=== PATIENT | female | born 1960 | race Caucasian/White ===

== ENCOUNTER 2016-05-22 12:56 | Emergency (ER) | payer BC ==
[~2016-05-22] VITALS: Ht 172.7 cm; Wt 79.4 kg
[~2016-05-22 12:56] MED LIST: ALPR2TAB2 PO; ASPI-587 PO; CRS350T PO; HYDR-2890 PO; HYDR-757 PO; HYDR25CA5 PO; NITR-65 PO; OXYC10TA55 PO; PARO30TA74 PO
--- OUTSIDE RECORDS SUMMARY | 2016-05-22 13:00 | XMS REPORT | Continuity of Care Document ---
Author Author [facility] Organization [facility] Address Unknown Phone Unavailable Care Team Providers Care Client Support Analyst Name Role Phone NO, LOCAL PHYSICIAN PCP Unavailable Insurance Providers Payer Name Policy Number Subscriber Name Relationship [facility] [id number] Juhi Roe 01 Advance Directives Directive Response Recorded Date/Time Advance Directives No 02/23/16 10:09am Organ Donor Yes 02/23/16 10:09am Resuscitation Status Full Code 02/23/16 10:09am Chief Complaint and Reason for Visit Chief Complaint Back Problems Reason for Visit Encounter for medication refill [id number] Problems Active Problems Medical Problem Onset Date Status Acute exacerbation of chronic low back pain Unknown Acute Anxiety Unknown Acute Anxiety Unknown Acute Anxiety Unknown Acute Benzodiazepine dependence Unknown Acute Chest wall pain Unknown Acute Drug-seeking behavior Unknown Acute Encounter for medication refill Unknown Acute Fracture of ribs, two, closed Unknown Acute Lumbar compression fracture Unknown Acute Opiate withdrawal Unknown Acute Urinary tract infection Unknown Acute Medications Current Home Medications Medication Dose Units Route Directions Days/Qty Instructions Start Date Paroxetine Hcl 30 Mg 30 Mg Oral Daily 01/02/14 Alprazolam 2 Mg 10 Mg Oral As Directed 01/02/14 Hydrocodone Bit/Acetaminophen 1 Each 2 Tab Oral Every 4HRS 01/02/14 Oxycodone Hcl 10 Mg 10 Mg Oral Twice A Day 10 12/31/15 Hydrocodone/Acetaminophen 1 Each 1 Each Oral Every 4HRS as needed for Pain 5 02/23/16 Past Home Medications Medication Directions Ordered Status Carisoprodol 350 Mg Tablet, 1 Tab Oral Tid-Qid 01/02/14 Discontinued Aspirin 81 Mg Tablet., 81 Mg Oral Daily 01/02/14 Discontinued Hydroxyzine Pamoate 25 Mg Capsule, 25 Mg Oral Every 6 Hours as needed for Anxiety 01/02/14 Discontinued Nitrofurantoin Monohyd/M-Cryst 100 Mg Capsule, 1 Tab Oral Twice A Day Discontinued Social History Social History Problem Response Recorded Date/Time Alcohol Use Denies Use 04/12/2015 9:49pm Recreational Drug Use Y MARIJUANA 04/12/2015 9:49pm Recent Foreign Travel No 01/02/2014 11:29am Recent Infectious Disease Exposure No 01/02/2014 11:29am Hospitalization with Isolation Denies 02/23/2016 10:09am Smoking Status Current Everyday Smoker 02/23/2016 10:09am Drug of Choice MARIJUANA 02/23/2016 10:09am Recent Hopitalizations No 02/23/2016 10:09am Hospitalization with Isolation Denies 02/23/2016 10:09am Query Response Start Date Stop Date Smoking Status Current Everyday Smoker 12/26/2014 Hospital Discharge Instructions No hospital discharge instructions. Plan of Care Discharge Date 02/23/16 11:26am Disposition 01 HOME, SELF-CARE Condition at Discharge Stable Instructions/Education Provided MANAGING YOUR CHRONIC PAIN Prescriptions See Medication Section Referrals NO,LOCAL PHYSICIAN - Primary Care Physician BARBIE OLIVER MD - Additional Instructions/Education 1. Follow-up with Dr. Oliver or a physician of your choosing for refills of any controlled substances 2. All discharge instructions reviewed with patient and/or family. Voiced understanding. Functional Status No functional status results. Allergies, Adverse Reactions, Alerts Allergen Type Severity Reaction Status Last Updated Penicillins ([id number]) Allergy Unknown Active 01/02/14 Immunizations No immunization records. Vital Signs Acute Vital Signs Vital Response Date/Time Temperature (Fahrenheit) 97.6 degrees F (97.6 - 99.5) 02/23/2016 11:24am Temperature (Calculated Celsius) 36.88183 degrees C (36.4 - 37.5) 02/23/2016 11:24am Pulse Rate (adult) 106 bpm (60 - 90) 02/23/2016 11:24am Respiratory Rate 18 bpm (12 - 24) 02/23/2016 11:24am O2 Sat by Pulse Oximetry 96 % (88 - 100) 02/23/2016 11:24am Blood Pressure 152/56 mm Hg 02/23/2016 11:24am Blood Pressure Mean 88 mm Hg 02/23/2016 10:09am Pain Numeric Pain Scale 10-Worst Possible Pain 02/23/2016 11:24am Height (Feet) 5 feet 02/23/2016 10:09am Height (Inches) 8 inches 02/23/2016 10:09am Height (Calculated Centimeters) 172.270753 cm 02/23/2016 10:09am Weight (Pounds) 175 pounds 02/23/2016 10:09am Weight (Calculated Kilograms) 79.636212 kilograms 02/23/2016 10:09am Capillary Refill Capillary Refill Less Than 3 Seconds 02/23/2016 10:09am Height 5 ft 8 in Weight 175 lb Body Mass Index 26.6 kg/m^2 Results Laboratory Results Test Name Result Units Flags Reference Collection Date/Time Result Date/ Time Comments White Blood Count 10.0 10^3/uL 4.3-11.0 02/05/2016 10:35am 02/05/2016 10:45am Red Blood Count 4.34 10^6/uL L 4.35-5.85 02/05/2016 10:35am 02/05/2016 10 :45am Hemoglobin 13.0 G/DL 11.5-16.0 02/05/2016 10:35am 02/05/2016 10:45am Hematocrit 39 % 35-52 02/05/2016 10:35am 02/05/2016 10:45am Mean Corpuscular Volume 89 FL 80-99 02/05/2016 10:35am 02/05/2016 10: 45am Mean Corpuscular Hemoglobin 30 PG 25-34 02/05/2016 10:35am 02/05/2016 10:45am Mean Corpuscular Hemoglobin Concent 34 G/DL 32-36 02/05/2016 10:35am 10:45am Red Cell Distribution Width 13.5 % 10.0-14.5 02/05/2016 10:35am 2015 10:45am Platelet Count 282 10^3/uL 130-400 02/05/2016 10:35am 02/05/2016 10: 45am Mean Platelet Volume 8.9 FL 7.4-10.4 02/05/2016 10:35am 02/05/2016 10: 45am Sodium Level 135 MMOL/L 135-145 02/05/2016 10:35am 02/05/2016 11:09am Potassium Level 4.4 MMOL/L 3.6-5.0 02/05/2016 10:35am 02/05/2016 11: 09am Chloride Level 101 MMOL/L 98-107 02/05/2016 10:35am 02/05/2016 11:09am Carbon Dioxide Level 27 MMOL/L 21-32 02/05/2016 10:35am 02/05/2016 11: 09am Anion Gap 7 MMOL/L 5-14 02/05/2016 10:35am 02/05/2016 11:09am Blood Urea Nitrogen 8 MG/DL 7-18 02/05/2016 10:35am 02/05/2016 11:09am Creatinine 0.84 MG/DL 0.60-1.30 02/05/2016 10:35am 02/05/2016 11:09am BUN/Creatinine Ratio 02/05/2016 10:35am 02/05/2016 11:09am Estimat Glomerular Filtration Rate > 60 02/05/2016 10:35am 2015 11:09am GFR INTERPRETIVE DATA UNITS FOR ESTIMATED GFR (eGFR): mL/min/1.73 M2 REFERENCE RANGE FOR ESTIMATED GFR (eGFR) eGFR NORMAL eGFR >60 MODERATELY DECREASED eGFR 30-59 SEVERLY DECREASED eGFR 15-29 KIDNEY FAILURE <15 (OR DIALYSIS) Glucose Level 92 MG/DL 70-105 02/05/2016 10:35am 02/05/2016 11:09am Calcium Level 9.2 MG/DL 8.5-10.1 02/05/2016 10:35am 02/05/2016 11:09am Total Bilirubin 0.5 MG/DL 0.1-1.0 02/05/2016 10:35am 02/05/2016 11: 09am Alkaline Phosphatase 86 U/L 40-136 02/05/2016 10:35am 02/05/2016 11: 09am Aspartate Amino Transf (AST/SGOT) 23 U/L 5-34 02/05/2016 10:35am 2015 11:09am Alanine Aminotransferase (ALT/SGPT) 23 U/L 0-55 02/05/2016 10:35am 12/2015 11:09am Total Protein 6.8 G/DL 6.4-8.2 02/05/2016 10:35am 02/05/2016 11:09am Albumin 4.2 G/DL 3.2-4.5 02/05/2016 10:35am 02/05/2016 11:09am Thyroid Stimulating Hormone (TSH) 0.57 UIU/ML 0.35-4.94 02/05/2016 10: 35am 02/05/2016 11:22am Calcium (PTH Intact) 9.0 mg/dL 8.5-10.5 02/05/2016 10:35am 02/06/2016 6 :54am The Interpretation for the PTH Intact and Calcium PTH results can be found online at: www.iSpecimen/interp Enter test number: [id number]. Test performed at [facility], CLIA# [id number] [address] [place] [address] Parathyroid Hormone (Intact) 74 pg/mL H 10-65 02/05/2016 10:35am 2015 7:01am Test performed at [facility], CLIA# [id number] [address] [place] [address] Vitamin D 25-Hydroxy 20 ng/mL L 30-100 02/05/2016 10:35am 02/06/2016 6: 54am Fluorescein dye has been shown to affect the Vitamin D assay and results may be falsely elevated. Patients that have had a procedure using this dye should be deferred 72 hours prior to collection or this assay. Test performed at [facility], CLIA# [id number] [address] [place] [address] Procedures No known history of procedures. Encounters Encounter Location Arrival/Admit Date Discharge/Depart Date Attending Provider Departed Emergency Room [facility] 02/23/16 10:02am 11:26am AYANA BOATENG APRN Registered Clinic [facility] 02/05/16 9:52am WAQAR ELLIS Recent Diagnosis
[2016-05-22 13:12] LABS: BASOPHILS % (AUTO) 0 % (0-10); EOSINOPHILS # (AUTO) 0.2 10^3/uL (0.0-0.3); EOSINOPHILS % (AUTO) 2 % (0-10); LYMPHOCYTES # (AUTO) 3.8 X 10^3 (1.0-4.0); LYMPHOCYTES % (AUTO) 35 % (12-44); MEAN CORPUSCULAR HEMOGLOBIN 31 PG (25-34); MEAN CORPUSCULAR HGB CONC 35 G/DL (32-36); MEAN CORPUSCULAR VOLUME 88 FL (80-99); MEAN PLATELET VOLUME 8.7 FL (7.4-10.4); MONOCYTES # (AUTO) 0.4 X 10^3 (0.0-1.0); MONOCYTES % (AUTO) 3 % (0-12); NEUTROPHILS # (AUTO) 6.4 X 10^3 (1.8-7.8); NEUTROPHILS % (AUTO) 59 % (42-75); PLATELET COUNT 255 10^3/uL (130-400); RED BLOOD COUNT 4.12 10^6/uL (4.35-5.85); RED CELL DISTRIBUTION WIDTH 12.8 % (10.0-14.5); WHITE BLOOD COUNT 10.8 10^3/uL (4.3-11.0)
[2016-05-22] MEDS ORDERED: PROM50TA3 PO (13:13)
[2016-05-22] MEDS ORDERED: GABA-486 (13:13)
[2016-05-22] MEDS ORDERED: GEMF600T3 (13:13)
[2016-05-22] MEDS ORDERED: HYDR-3812 PO (13:13)
[2016-05-22] MEDS ORDERED: ALPR1TAB7 PO (13:13)
[2016-05-22] MEDS ORDERED: PARO40TA3 (13:13)
[2016-05-22 13:31] LABS: ALANINE AMINOTRANSFERASE 31 U/L (0-55); ALCOHOL 11 MG/DL (<10); ANION GAP 11 MMOL/L (5-14); ASPARTATE AMINO TRANSFERASE 27 U/L (5-34); BILIRUBIN,TOTAL 0.1 MG/DL (0.1-1.0); BLOOD UREA NITROGEN 9 MG/DL (7-18); BUN/CREATININE RATIO 10; CALCIUM 9.9 MG/DL (8.5-10.1); CARBON DIOXIDE 21 MMOL/L (21-32); CHLORIDE 106 MMOL/L (98-107); CREATININE SERUM 0.92 MG/DL (0.60-1.30); GFR ESTIMATED > 60; GLUCOSE 90 MG/DL (70-105); POTASSIUM 4.3 MMOL/L (3.6-5.0); SODIUM 138 MMOL/L (135-145); TOTAL PROTEIN 6.5 G/DL (6.4-8.2)
[2016-05-22 13:38] LABS: ACETAMINOPHEN < 10 UG/ML (10-30)
[2016-05-22 13:45] LABS: BILIRUBIN,URINE NEGATIVE (NEGATIVE); KETONES,URINE NEGATIVE (NEGATIVE); LEUKOCYTE ESTERASE ,URINE NEGATIVE (NEGATIVE); NITRITE,URINE NEGATIVE (NEGATIVE); PH,URINE 5 (5-9); PROTEIN,URINE NEGATIVE (NEGATIVE); UROBILINOGEN,URINE NORMAL (NORMAL)
--- NOTE | 2016-05-22 14:28 | ED General ---
General Chief Complaint: Altered Mental Status Stated Complaint: UNRESPONSIVE Nursing Triage Note: PT WAS OUT SHOPPING WITH TODAY AND AROUND 1230 PT REPORTED NOT FEELING WELL AND BECAME DROWSY AND LETHARGIC. PT REPORT PT DID NOT HAVE ANY KNOWN RECENT ILLNESS. PT ABLE TO RESPOND WITH STIMULATION. Nursing Sepsis Screen: No Definite Risk Source of Information: Patient Exam Limitations: No Limitations History of Present Illness Time Seen by Provider: 14:23 Initial Comments The patient is a 55-year-old white female who has been known to have difficulties with the prescription medication abuse. Her reports that they had been out and shopping and return to the [place] about 1230. She then lapsed into a sleeplike state and he has been unable to awaken her since that time. Timing/Duration: 1-3 Hours Allergies and Home Medications Allergies Coded Allergies: Penicillins (Unverified Allergy, Unknown, 01/02/14) Home Medications Alprazolam 2 Mg Tablet 10 MG PO UD (Reported) Alprazolam 1 Mg Tablet #150 1 MG PO TID PRN PRN ANXIETY (Reported) Gabapentin 100 Mg Capsule #90 (Reported) Gemfibrozil 600 Mg Tablet #60 (Reported) Hydrocodone/Acetaminophen 1 Each Tablet #90 1 TAB-CAP PO TID PRN PRN PAIN ( Reported) Paroxetine HCl 40 Mg Tablet #30 (Reported) Paroxetine Hcl 30 Mg Tablet 30 MG PO DAILY (Reported) Promethazine HCl 50 Mg Tablet #60 50 MG PO PRN (Reported) Constitutional: see HPI EENTM: no symptoms reported Respiratory: no symptoms reported Cardiovascular: no symptoms reported Gastrointestinal: no symptoms reported Genitourinary: no symptoms reported Musculoskeletal: no symptoms reported Skin: no symptoms reported Psychiatric/Neurological: No Symptoms Reported Hematologic/Lymphatic: No Symptoms Reported Immunological/Allergic: no symptoms reported Past Phnmpaz-Kvelks-Kzfcoh Hx Patient Social History Alcohol Use: Denies Use Recreational Drug Use: Yes Drug of Choice: MARIJUANA Smoking Status: Former Smoker Former Smoker/When Quit: Dec 26, 2014 Recent Foreign Travel: No Contact w/Someone Who Travel: No Recent Infectious Disease Expo: No Recent Hopitalizations: No Seasonal Allergies Seasonal Allergies: No Surgeries HX Surgeries: Yes (CERVICAL FUSION) Surgeries: Abdominal, Cardiac, Section, Gallbladder, Hysterectomy, Tonsillectomy Respiratory Hx Respiratory Disorders: Yes Respiratory Disorders: Asthma Cardiovascular Hx Cardiac Disorders: No Neurological Hx Neurological Disorders: No 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 Genitourinary Hx Genitourinary Disorders: No Gastrointestinal Hx Gastrointestinal Disorders: Yes Gastrointestinal Disorders: Hiatal Hernia Musculoskeletal Hx Musculoskeletal Disorders: Yes (compression fractures of the lumbar spine) Musculoskeletal Disorders: Osteoporosis, Arthritis, Fibromyalgia, Chronic Back Pain Endocrine Hx Endocrine Disorders: No HEENT HX ENT Disorders: No Cancer Hx Cancer: Yes Cancer: Skin, Cervical Psychosocial Hx Psychiatric Problems: Yes Behavioral Health Disorders: Anxiety, PTSD, Bipolar Family Medical History Significant Family History: No Pertinent Family Hx Family Medial History: Patient reports no known family medical history. Physical Exam Vital Signs Vital Sign - Last 12Hours 05/22/16 13:13 Temp 97.2 Pulse 86 Resp 18 B/P 128/89 Pulse Ox 92 O2 Delivery Room Air Capillary Refill : Less Than 3 Seconds General Appearance: Other (appears to be peacefully sleeping) Eyes: Bilateral Eye Normal Inspection HEENT: Normal ENT Inspection Neck: Normal Inspection Respiratory: Chest Non Tender Lungs Clear Normal Breath Sounds No Accessory Muscle Use No Respiratory Distress Other (snoring) Gastrointestinal: Normal Bowel Sounds No Organomegaly No Pulsatile Mass Non Tender Soft Extremity: Normal Capillary Refill Normal Inspection Normal Range of Motion Non Tender No Calf Tenderness No Pedal Edema Neurologic/Psychiatric: Alert Oriented x3 No Motor/Sensory Deficits Normal Mood/Affect Skin: Normal Color Warm/Dry Lymphatic: No Adenopathy Progress/Results/Core Measures Results/Orders Lab Results Laboratory Tests Test 05/22/16 13:05 05/22/16 13:35 Range/Units Acetaminophen Level < 10 L 10-30 UG/ML Alanine Aminotransferase (ALT/SGPT) 31 0-55 U/L Albumin 4.0 3.2-4.5 G/DL Alkaline Phosphatase 71 40-136 U/L Anion Gap 11 5-14 MMOL/L Aspartate Amino Transf (AST/SGOT) 27 5-34 U/L BUN/Creatinine Ratio 10 Basophils # (Auto) 0.0 0.0-0.1 10^3/uL Basophils (%) (Auto) 0 0-10 % Blood Urea Nitrogen 9 7-18 MG/DL Calcium Level 9.9 8.5-10.1 MG/DL Carbon Dioxide Level 21 21-32 MMOL/L Chloride Level 106 98-107 MMOL/L Creatinine 0.92 0.60-1.30 MG/DL Eosinophils # (Auto) 0.2 0.0-0.3 10^3/uL Eosinophils (%) (Auto) 2 0-10 % Estimat Glomerular Filtration Rate > 60 Glucose Level 90 70-105 MG/DL Hematocrit 36 35-52 % Hemoglobin 12.7 11.5-16.0 G/DL Lymphocytes # (Auto) 3.8 1.0-4.0 X 10^3 Lymphocytes (%) (Auto) 35 12-44 % Mean Corpuscular Hemoglobin 31 25-34 PG Mean Corpuscular Hemoglobin Concent 35 32-36 G/DL Mean Corpuscular Volume 88 80-99 FL Mean Platelet Volume 8.7 7.4-10.4 FL Monocytes # (Auto) 0.4 0.0-1.0 X 10^3 Monocytes (%) (Auto) 3 0-12 % Neutrophils # (Auto) 6.4 1.8-7.8 X 10^3 Neutrophils (%) (Auto) 59 42-75 % Platelet Count 255 130-400 10^3/uL Potassium Level 4.3 3.6-5.0 MMOL/L Red Blood Count 4.12 L 4.35-5.85 10^6/uL Red Cell Distribution Width 12.8 10.0-14.5 % Serum Alcohol 11 H <10 MG/DL Sodium Level 138 135-145 MMOL/L Total Bilirubin 0.1 0.1-1.0 MG/DL Total Protein 6.5 6.4-8.2 G/DL White Blood Count 10.8 4.3-11.0 10^3/uL Ur Tricyclic Antidepressants Screen NEGATIVE NEGATIVE Urine Amphetamines Screen NEGATIVE NEGATIVE Urine Bacteria NEGATIVE /HPF Urine Barbiturates Screen NEGATIVE NEGATIVE Urine Benzodiazepines Screen POSITIVE H NEGATIVE Urine Bilirubin NEGATIVE NEGATIVE Urine Cannabinoids Screen POSITIVE H NEGATIVE Urine Casts NONE /LPF Urine Clarity CLEAR Urine Cocaine Screen NEGATIVE NEGATIVE Urine Color YELLOW Urine Crystals NONE /LPF Urine Culture Indicated NO Urine Glucose (UA) NEGATIVE NEGATIVE Urine Ketones NEGATIVE NEGATIVE Urine Leukocyte Esterase NEGATIVE NEGATIVE Urine Methadone Screen NEGATIVE NEGATIVE Urine Methamphetamines Screen NEGATIVE NEGATIVE Urine Mucus NEGATIVE /LPF Urine Nitrite NEGATIVE NEGATIVE Urine Opiates Screen POSITIVE H NEGATIVE Urine Oxycodone Screen NEGATIVE NEGATIVE Urine Phencyclidine Screen NEGATIVE NEGATIVE Urine Propoxyphene Screen NEGATIVE NEGATIVE Urine Protein NEGATIVE NEGATIVE Urine RBC NONE /HPF Urine RBC (Auto) NEGATIVE NEGATIVE Urine Specific [place] 1.010 L 1.016-1.022 Urine Squamous Epithelial Cells 5-10 /HPF Urine Urobilinogen NORMAL NORMAL MG/DL Urine WBC NONE /HPF Urine pH 5 5-9 My Orders Orders-ANA CAPPS MD Acetaminophen (05/22/16 13:02) Alcohol (05/22/16 13:02) Cbc With Automated Diff (05/22/16 13:02) Comprehensive Metabolic Panel (05/22/16 13:02) Drug Screen Stat (Urine) (05/22/16 13:02) Ua Culture If Indicated (05/22/16 13:02) Naloxone Injection (Narcan Injection) (05/22/16 14:30) Medications Given in ED Current Medications Medications Dose Ordered Sig/Benjy Route Start Time Stop Time Status Last Admin Dose Admin Naloxone HCl 2 mg ONCE ONCE IV 05/22/16 14:30 05/22/16 14:31 DC 05/22/16 14:48 2 MG Vital Signs/I&O Vital Sign - Last 12Hours 05/22/16 13:13 Temp 97.2 Pulse 86 Resp 18 B/P 128/89 Pulse Ox 92 O2 Delivery Room Air Blood Pressure Mean: 102 Departure Communication Progress Notes 1518: Patient was given naloxone and is now easily arousable. Impression Impression: Primary Impression: oversedation secondary to use of multiple prescription drugs Disposition: 01 HOME, SELF-CARE Condition: Improved Departure-Patient Inst. Decision time for Depature: 15:18 Referrals: NO,LOCAL PHYSICIAN (PCP) Primary Care Physician Patient Instructions: Prescription Drug Abuse (DC) Add. Discharge Instructions: All discharge instructions reviewed with patient and/or family. Voiced understanding. Use strict adherence to dosages of drugs prescribed to you ANA CAPPS MD May 22, 2016 14:28
[2016-05-22] MEDS ORDERED: NALOXONE 2 MG/2 ML (NARCAN) SYR IV ONE (14:30)
[2016-05-22 15:27] VITALS: BP 110/74
== END 2016-05-22 15:26 | disposition home or self-care (01) ==
LOC: EDUNIT# 12:56 → ER 12:57
DX: T42.4X1A Poisoning by benzodiazepines, accidental (unintentional), initial encounter (principal); T42.71XA Poisoning by unspecified antiepileptic and sedative-hypnotic drugs, accidental (unintentional), initial encounter; Z79.899 Other long term (current) drug therapy
CPT/HCPCS: 36415; 51701; 80053; 80306; 80320; 80329; 81000; 85025; 96374

== ENCOUNTER 2016-08-12 08:34 | Observation (INO) | payer BC ==
[~2016-08-12] VITALS: Ht 167.6 cm; Wt 80.0 kg
[~2016-08-12 08:34] MED LIST changes: +ALPR1TAB7 PO; +GABA-486; +GEMF600T3; +HYDR-3812 PO; +PARO40TA3 PO; +PROM50TA3 PO
[2016-08-12] MEDS ORDERED: TIZA4TAB3 PO (09:06)
[2016-08-12] MEDS ORDERED: OXYC-471 PO (09:06)
[2016-08-12] MEDS ORDERED: MELO15TA39 PO (09:06)
[2016-08-12] MEDS ORDERED: POLY255P PO (09:06)
[2016-08-12] MEDS ORDERED: TERI202.4P SQ (09:06)
[2016-08-12] MEDS ORDERED: NS IV 1000 ML 1,000 ML IV ONE (09:13)
[2016-08-12] MEDS ORDERED: ONDANSETRON 4 MG/2 ML (SDV) Z0FRAN IVP ONE (09:15)
[2016-08-12] MEDS ORDERED: HYDROmorphone (DILAUDID) 2 MG/ML VIAL IVP STA (09:15)
[2016-08-12 09:20] LABS: BASOPHILS % (AUTO) 1 % (0-10); BILIRUBIN,URINE NEGATIVE (NEGATIVE); EOSINOPHILS # (AUTO) 0.1 10^3/uL (0.0-0.3); EOSINOPHILS % (AUTO) 2 % (0-10); KETONES,URINE NEGATIVE (NEGATIVE); LEUKOCYTE ESTERASE ,URINE NEGATIVE (NEGATIVE); LYMPHOCYTES # (AUTO) 2.8 X 10^3 (1.0-4.0); LYMPHOCYTES % (AUTO) 32 % (12-44); MEAN CORPUSCULAR HEMOGLOBIN 30 PG (25-34); MEAN CORPUSCULAR HGB CONC 35 G/DL (32-36); MEAN CORPUSCULAR VOLUME 86 FL (80-99); MEAN PLATELET VOLUME 9.2 FL (7.4-10.4); MONOCYTES # (AUTO) 0.4 X 10^3 (0.0-1.0); MONOCYTES % (AUTO) 5 % (0-12); NEUTROPHILS # (AUTO) 5.4 X 10^3 (1.8-7.8); NEUTROPHILS % (AUTO) 62 % (42-75); NITRITE,URINE NEGATIVE (NEGATIVE); PH,URINE 8 (5-9); PLATELET COUNT 355 10^3/uL (130-400); PROTEIN,URINE NEGATIVE (NEGATIVE); RED BLOOD COUNT 5.04 10^6/uL (4.35-5.85); RED CELL DISTRIBUTION WIDTH 12.3 % (10.0-14.5); UROBILINOGEN,URINE NORMAL (NORMAL); WHITE BLOOD COUNT 8.8 10^3/uL (4.3-11.0)
[2016-08-12] MEDS ORDERED: NS 100 ML (IVPB) BAG IV ONE (09:30)
[2016-08-12] MEDS ORDERED: IOHEXOL 350 MG/ML 100 ML (OMNIPAQUE 350) VIAL IV ONE (09:30)
[2016-08-12] MEDS ORDERED: CATHETER FLUSH 10 ML SYR IV PRN ×2 (09:30→12:45)
[2016-08-12 09:33] LABS: ALANINE AMINOTRANSFERASE 17 U/L (0-55); ALBUMIN 4.4 G/DL (3.2-4.5); ANION GAP 10 MMOL/L (5-14); ASPARTATE AMINO TRANSFERASE 20 U/L (5-34); BILIRUBIN,TOTAL 0.5 MG/DL (0.1-1.0); BLOOD UREA NITROGEN 6 MG/DL (7-18); BUN/CREATININE RATIO 6; CALCIUM 9.9 MG/DL (8.5-10.1); CARBON DIOXIDE 25 MMOL/L (21-32); CHLORIDE 102 MMOL/L (98-107); CREATININE SERUM 0.95 MG/DL (0.60-1.30); GFR ESTIMATED > 60; GLUCOSE 107 MG/DL (70-105); MAGNESIUM 2.1 MG/DL (1.8-2.4); POTASSIUM 4.2 MMOL/L (3.6-5.0); SODIUM 137 MMOL/L (135-145); SQUAMOUS EPITHELIAL CELL,UR RARE /HPF; TOTAL PROTEIN 7.2 G/DL (6.4-8.2); hs C REACTIVE PROTEIN 0.61 MG/DL (0.00-0.50)
--- NOTE | 2016-08-12 09:50 | ED Abdominal Pain ---
General Chief Complaint: Abdominal/GI Problems Stated Complaint: ABD PAIN Nursing Triage Note: PT CO OF SEVERE ABD PAIN FOR 2 WEEKS, [facility] [place] Sepsis Screen: No Definite Risk Source of Information: Patient Exam Limitations: No Limitations History of Present Illness Time Seen By Provider: 08:50 Initial Comments Here with report of abdominal pain that has been going on for months and she states it is sharp and worse with walking or movement. She reports that it's to her lower abdomen. Reports that she's had some nausea and constipation. She is on medications for constipation. She has chronic pain and she is on pain medicines for this. She reports that she took her last dose of medicine today. She follows with her provider as well as a pain management doctor. She is apparently supposed to have surgery in a few weeks in [place]. Denies blood in her stool or urine. Denies vomiting. Timing/Duration: Changing Over Time, Getting Worse, Other (months) Severity/Quality: Moderate, Stabbing Location: RLQ, LLQ Radiation: No Radiation Activities at Onset: None Modifying Factors: Improves With Analgesics, Worsens With Movement Associated Symptoms: No Back Pain, No Chest Pain, No Fever/Chills, Nausea/ Vomiting, No Swelling/Mass in Abdomen, No Weakness Allergies and Home Medications Allergies Coded Allergies: Penicillins (Unverified Allergy, Unknown, 01/02/14) Home Medications Alprazolam 2 Mg Tablet, 10 MG PO UD, (Reported) Alprazolam 1 Mg Tablet, 1 MG PO TID PRN for ANXIETY, #150 (Reported) Gabapentin 100 Mg Capsule, #90 (Reported) Gemfibrozil 600 Mg Tablet, #60 (Reported) Meloxicam 15 Mg Tablet, #30 (Reported) Oxycodone HCl/Acetaminophen 1 Each Tablet, #90 (Reported) Paroxetine HCl 40 Mg Tablet, #30 (Reported) Paroxetine Hcl 30 Mg Tablet, 30 MG PO DAILY, (Reported) Polyethylene Glycol 3350 255 Gm Powder, #527 (Reported) Promethazine HCl 50 Mg Tablet, 50 MG PO PRN, #60 (Reported) Teriparatide 600 Mcg/2.4 Ml Syr, #2 (Reported) Tizanidine HCl 4 Mg Tablet, #90 (Reported) Review of Systems Constitutional: see HPI, No chills, No fever EENTM: No Symptoms Reported Respiratory: No Symptoms Reported Cardiovascular: No Symptoms Reported Gastrointestinal: See HPI, Abdominal Pain, Constipated Genitourinary: No Symptoms Reported Musculoskeletal: neck pain (chronic pain) Skin: no symptoms reported Psychiatric/Neurological: Anxiety, Denies Weakness Endocrine: No Symptoms Reported All Other Systems Reviewed Negative Unless Noted: Yes Past Gkonsmp-Rhtyom-Ftethl Hx Patient Social History Alcohol Use: Denies Use Recreational Drug Use: Yes Drug of Choice: MARIJUANA Smoking Status: Former Smoker Former Smoker/When Quit: Dec 26, 2014 Recent Foreign Travel: No Contact w/Someone Who Travel: No Recent Infectious Disease Expo: No Recent Hopitalizations: No Seasonal Allergies Seasonal Allergies: No Surgeries HX Surgeries: Yes (CERVICAL FUSION) Surgeries: Abdominal, Cardiac, Section, Gallbladder, Hysterectomy, Tonsillectomy Respiratory Hx Respiratory Disorders: Yes Respiratory Disorders: Asthma Cardiovascular Hx Cardiac Disorders: No Neurological Hx Neurological Disorders: No Reproductive System [employer] History: Hysterectomy Genitourinary Hx Genitourinary Disorders: No Gastrointestinal Hx Gastrointestinal Disorders: Yes Gastrointestinal Disorders: Hiatal Hernia Musculoskeletal Hx Musculoskeletal Disorders: Yes (compression fractures of the lumbar spine) Musculoskeletal Disorders: Osteoporosis, Arthritis, Fibromyalgia, Chronic Back Pain Endocrine Hx Endocrine Disorders: No HEENT HX ENT Disorders: No Cancer Hx Cancer: Yes Cancer: Skin, Cervical Psychosocial Hx Psychiatric Problems: Yes Behavioral Health Disorders: Anxiety, PTSD, Bipolar Reviewed Nursing Assessment Reviewed/Agree w Nursing PMH: Yes Family Medical History Significant Family History: No Pertinent Family Hx Family Medial History: Patient reports no known family medical history. Physical Exam Vital Signs VS - Last 72 Hours, by Label 08/12/16 08:43 Temp 98.3 Pulse 70 Resp 18 B/P (MAP) Pulse Ox 99 Capillary Refill : Less Than 3 Seconds General Appearance: WD/WN, mild distress (anxious and irritable) HEENT: PERRL/EOMI, pharynx normal Neck: full range of motion, supple Respiratory: lungs clear, normal breath sounds Cardiovascular: regular rate, rhythm, no murmur Gastrointestinal: soft, tenderness (mild at the base) Extremities: non-tender, normal inspection Back: normal inspection, no CVA tenderness, no vertebral tenderness Neurologic/Psychiatric: alert, oriented x 3 Skin: normal color, warm/dry Progress/Results/Core Measures Results/Orders Lab Results Laboratory Tests Test 08/12/16 08:50 Range/Units White Blood Count 8.8 4.3-11.0 10^3/uL Red Blood Count 5.04 4.35-5.85 10^6/uL Hemoglobin 15.0 11.5-16.0 G/DL Hematocrit 43 35-52 % Mean Corpuscular Volume 86 80-99 FL Mean Corpuscular Hemoglobin 30 25-34 PG Mean Corpuscular Hemoglobin Concent 35 32-36 G/DL Red Cell Distribution Width 12.3 10.0-14.5 % Platelet Count 355 130-400 10^3/uL Mean Platelet Volume 9.2 7.4-10.4 FL Neutrophils (%) (Auto) 62 42-75 % Lymphocytes (%) (Auto) 32 12-44 % Monocytes (%) (Auto) 5 0-12 % Eosinophils (%) (Auto) 2 0-10 % Basophils (%) (Auto) 1 0-10 % Neutrophils # (Auto) 5.4 1.8-7.8 X 10^3 Lymphocytes # (Auto) 2.8 1.0-4.0 X 10^3 Monocytes # (Auto) 0.4 0.0-1.0 X 10^3 Eosinophils # (Auto) 0.1 0.0-0.3 10^3/uL Basophils # (Auto) 0.0 0.0-0.1 10^3/uL Urine Color YELLOW Urine Clarity CLEAR Urine pH 8 5-9 Urine Specific Chana 1.010 L 1.016-1.022 Urine Protein NEGATIVE NEGATIVE Urine Glucose (UA) NEGATIVE NEGATIVE Urine Ketones NEGATIVE NEGATIVE Urine Nitrite NEGATIVE NEGATIVE Urine Bilirubin NEGATIVE NEGATIVE Urine Urobilinogen NORMAL NORMAL MG/DL Urine Leukocyte Esterase NEGATIVE NEGATIVE Urine RBC (Auto) NEGATIVE NEGATIVE Urine RBC NONE /HPF Urine WBC NONE /HPF Urine Squamous Epithelial Cells RARE /HPF Urine Crystals NONE /LPF Urine Bacteria NEGATIVE /HPF Urine Casts NONE /LPF Urine Mucus NEGATIVE /LPF Urine Culture Indicated NO Sodium Level 137 135-145 MMOL/L Potassium Level 4.2 3.6-5.0 MMOL/L Chloride Level 102 98-107 MMOL/L Carbon Dioxide Level 25 21-32 MMOL/L Anion Gap 10 5-14 MMOL/L Blood Urea Nitrogen 6 L 7-18 MG/DL Creatinine 0.95 0.60-1.30 MG/DL Estimat Glomerular Filtration Rate > 60 BUN/Creatinine Ratio 6 Glucose Level 107 H 70-105 MG/DL Calcium Level 9.9 8.5-10.1 MG/DL Magnesium Level 2.1 1.8-2.4 MG/DL Total Bilirubin 0.5 0.1-1.0 MG/DL Aspartate Amino Transf (AST/SGOT) 20 5-34 U/L Alanine Aminotransferase (ALT/SGPT) 17 0-55 U/L Alkaline Phosphatase 73 40-136 U/L C-Reactive Protein High Sensitivity 0.61 H 0.00-0.50 MG/DL Total Protein 7.2 6.4-8.2 G/DL Albumin 4.4 3.2-4.5 G/DL Urine Opiates Screen NEGATIVE NEGATIVE Urine Oxycodone Screen POSITIVE H NEGATIVE Urine Methadone Screen NEGATIVE NEGATIVE Urine Propoxyphene Screen NEGATIVE NEGATIVE Urine Barbiturates Screen NEGATIVE NEGATIVE Ur Tricyclic Antidepressants Screen NEGATIVE NEGATIVE Urine Phencyclidine Screen NEGATIVE NEGATIVE Urine Amphetamines Screen NEGATIVE NEGATIVE Urine Methamphetamines Screen NEGATIVE NEGATIVE Urine Benzodiazepines Screen POSITIVE H NEGATIVE Urine Cocaine Screen NEGATIVE NEGATIVE Urine Cannabinoids Screen POSITIVE H NEGATIVE My Orders Orders - RUSSELL CALZADA MD Cbc With Automated Diff (08/12/16 09:13) Comprehensive Metabolic Panel (08/12/16 09:13) Hs C Reactive Protein (08/12/16 09:13) Drug Screen Stat (Urine) (08/12/16 09:13) Magnesium (08/12/16 09:13) Ua Culture If Indicated (08/12/16 09:13) Ct Abd/Pelv W (Appendicitis) (08/12/16 09:13) Saline Lock/Iv-Start (08/12/16 09:13) Ns Iv 1000 Ml (Sodium Chloride 0.9%) (08/12/16 09:13) Hydromorphone Injection (Dilaudid Inject (08/12/16 09:15) Ondansetron Injection (Zofran Injectio (08/12/16 09:15) Iohexol Injection (Omnipaque 350 Mg/Ml 1 (08/12/16 09:30) Sodium Chloride Flush (Catheter Flush Sy (08/12/16 09:30) Ns (Ivpb) (Sodium Chloride 0.9% Ivpb Bag (08/12/16 09:30) Medications Given in ED Current Medications Medications Dose Ordered Sig/Benjy Route Start Time Stop Time Status Last Admin Dose Admin Iohexol 100 ml ONCE ONCE IV 08/12/16 09:30 08/12/16 09:31 DC 08/12/16 09:51 100 ML Ondansetron HCl 4 mg ONCE ONCE IVP 08/12/16 09:15 08/12/16 09:17 DC 08/12/16 09:21 4 MG Sodium Chloride 100 ml ONCE ONCE IV 08/12/16 09:30 08/12/16 09:31 DC 08/12/16 09:51 80 ML Sodium Chloride 1,000 ml @ 0 mls/hr Q0M ONCE IV 08/12/16 09:13 08/12/16 09:15 DC 08/12/16 09:21 1,000 MLS/HR Vital Signs/I&O Vital Sign - Last 12Hours 08/12/16 08:43 Temp 98.3 Pulse 70 Resp 18 B/P (MAP) Pulse Ox 99 Progress Note : Progress Note Seen and evaluated. IV, labs, normal saline 1 L bolus, UA and UDS ordered. Zofran 4 mg IV and Dilaudid 1 mg IV for nausea and pain. Patient reports that she has been on MiraLAX for constipation and last bowel movement was this morning. No report of blood in stool. Monitor patient. CT abdomen pelvis ordered. 1113: I did discuss the case with Dr. Hdez as the CT scan results do show colitis at the cecum and appendix area. We will initiate antibiotics and clear liquid diet. I also discussed the case with Dr. Wesley and she accepts patient for admission for [facility]. Lemuel in consult. I did discuss the patient's drug screen results with her including marijuana use. She does admit to chronic marijuana use. Patient was counseled to stop this is chronic marijuana use is highly associated with chronic abdominal pain and vomiting syndromes. Patient stated that she was appreciative of this information. Diagnostic Imaging Diagonstic Imaging: CT Plain Films/CT/US/NM/MRI: abdomen, pelvis Comments VIA [facility]. [place], [place] NAME: ZIYAD TOMLINSON [facility] REC#: [id number] PT STATUS: REG ER : 1960 PHYSICIAN: RUSSELL CALZADA MD ADMIT DATE: 08/12/16/ER Draft Date of Exam:08/12/16 CT ABD/PELV W (APPENDICITIS) PROCEDURE: CT abdomen and pelvis with contrast, rule out appendicitis. TECHNIQUE: Multiple contiguous axial images were obtained through the abdomen and pelvis after the administration of intravenous contrast. INDICATION: Abdominal pain. 100 mL of Omnipaque 350 was administered intravenously. FINDINGS: There is a calcified granuloma in the left lung base. The liver, the spleen, the pancreas, and the right adrenal gland appear unremarkable. There is a nonspecific 1.1-cm left adrenal nodule which appears minimally more prominent compared to 04/12/2015, exam possibly related to slight difference in slice selection rather than true difference. Etiology is uncertain; however, in the absence of history of malignancy, this is more likely to be a small adenoma. The kidneys have symmetric enhancement and contrast excretion. Subcentimeter hypodense lesions are seen in both kidneys too small to accurately characterize. The abdominal aorta is normal in caliber. No para-aortic significantly enlarged lymph node is seen. There is thickening of the base of the cecum and the appendix wall with enhancement and prominent amount of fluid in the appendix and in the base of the cecum. Nonspecific mild thickening in the sigmoid colon is also seen. There is mild thickening in the urinary bladder wall anteriorly. There is suggestion of prior hysterectomy. No significant free fluid or fluid collection in the abdomen or pelvis. The osseous structures demonstrate mild scoliotic curvature convex to the right with old compression fracture of L1 suggested, appears similar to March 2015. IMPRESSION: 1. There is wall thickening and enhancement in the base of the cecum and the appendix with luminal fluid distention. There is also mild wall thickening in the sigmoid colon. The findings are favored to be secondary to inflammatory or infectious colitis. No free fluid or abscess. The findings in the appendix are favored to be secondary to colitis rather than primarily related to acute appendicitis. Correlate clinically. 2. Nonspecific 1.1-cm right adrenal nodule without definite change from March 2015 likely related to an adenoma. Findings were discussed with Dr. Calzada at time of dictation. Dictated on workstation # [id number] Dict: 08/12/16 1010 Trans: 08/12/16 1031 CHRISTOFER [id number] Interpreted by: NEVILLE RODNEY MD Electronically signed by: Departure Communication Time/Spoke to Admitting Phy: 11:20 Time/Spoke to Consulting Physi: 11:13 Impression Impression: Primary Impression: Colitis, acute Additional Impression: Lower abdominal pain Disposition: ADMITTED INPATIENT Condition: Stable Decision to Admit Reason: Admit from ER (General) Decision to Admit/Date: August 12, 2016 Time/Decision to Admit Time: 11:13 Departure-Patient Inst. Referrals: NO,LOCAL PHYSICIAN (PCP) Primary Care Physician RUSSELL CALZADA MD August 12, 2016 09:50
--- NOTE | 2016-08-12 10:31 | Diagnostic Imaging Report ---
PROCEDURE: CT abdomen and pelvis with contrast, rule out appendicitis. TECHNIQUE: Multiple contiguous axial images were obtained through the abdomen and pelvis after the administration of intravenous contrast. INDICATION: Abdominal pain. 100 mL of Omnipaque 350 was administered intravenously. FINDINGS: There is a calcified granuloma in the left lung base. The liver, the spleen, the pancreas, and the right adrenal gland appear unremarkable. There is a nonspecific 1.1-cm left adrenal nodule which appears minimally more prominent compared to 04/12/2015, exam possibly related to slight difference in slice selection rather than true difference. Etiology is uncertain; however, in the absence of history of malignancy, this is more likely to be a small adenoma. The kidneys have symmetric enhancement and contrast excretion. Subcentimeter hypodense lesions are seen in both kidneys too small to accurately characterize. The abdominal aorta is normal in caliber. No para-aortic significantly enlarged lymph node is seen. There is thickening of the base of the cecum and the appendix wall with enhancement and prominent amount of fluid in the appendix and in the base of the cecum. Nonspecific mild thickening in the sigmoid colon is also seen. There is mild thickening in the urinary bladder wall anteriorly. There is suggestion of prior hysterectomy. No significant free fluid or fluid collection in the abdomen or pelvis. The osseous structures demonstrate mild scoliotic curvature convex to the right with old compression fracture of L1 suggested, appears similar to March 2015. IMPRESSION: 1. There is wall thickening and enhancement in the base of the cecum and the appendix with luminal fluid distention. There is also mild wall thickening in the sigmoid colon. The findings are favored to be secondary to inflammatory or infectious colitis. No free fluid or abscess. The appendix involvement is favored to be secondary to colitis rather than acute appendicitis. Correlate clinically. 2. Nonspecific 1.1-cm right adrenal nodule without definite change from March 2015 likely related to an adenoma. Findings were discussed with Dr. Morales at time of dictation. Dictated by: Dictated on workstation # [id number]
[2016-08-12] MEDS ORDERED: TRAZ-28 PO (12:35)
[2016-08-12 12:44] VITALS: BP 172/78
[2016-08-12] MEDS ORDERED: HYDROmorphone (DILAUDID) 2 MG/ML VIAL IV PRN (12:45)
[2016-08-12] MEDS: metroNIDAZOLE 500 MG/100 ML IVPB (PRE-MIX) IV SCH ×2 (12:48→17:42)
[2016-08-12] MEDS: NS IV 1000 ML 1,000 ML IV SCH ×2 (12:48→20:30)
[2016-08-12] MEDS ORDERED: D50KC PO (12:53)
[2016-08-12] MEDS: ALPRAZolam 1 MG (XANAX) TAB PO PRN ×2 (13:26→20:57)
[2016-08-12 16:00] VITALS: BP 146/86
[2016-08-12] MEDS ORDERED: fentaNYL PATCH 25 MCG (DURAGESIC) TD SCH (16:45)
[2016-08-12] MEDS ORDERED: ONDANSETRON 4 MG/2 ML (SDV) Z0FRAN IVP PRN (16:45)
[2016-08-12] MEDS: oxyCODONE/APAP 10/325MG (PERCOCET 10) TABLET PO PRN ×2 (17:09→20:56)
[2016-08-12] MEDS: morphine INJ 10 MG/ML 1ML (SYR OR VIAL) IVP PRN (17:09)
--- NOTE | 2016-08-12 18:23 | HISTORY AND PHYSICAL ---
DATE OF SERVICE: 08/12/2016 ATTENDING HOSPITAL LIBRARIAN: [facility] HISTORY OF PRESENT ILLNESS: The patient is a 45-year-old female who presented to [facility] Emergency Department today with diffuse abdominal pain, however, more severe in the lower abdominal quadrants. She reports a long complicated history starting with cervical cancer diagnosed at 16 years of age requiring a total hysterectomy at the time. Due to estrogen deficiency she did develop a significant osteoporosis as well as degenerative joint disease and chronic pain issues. She reports that she has had issues with degenerative joint disease, scoliosis, bone demineralization and has been on different medications; however, this has not helped with her pain. She was also started on Forteo, which is recombinant DNA to help with bone regrowth; however, continued to have pain. She reports that she has had previous colonoscopies in the past with the last one done approximately 5 years ago and a polyp was identified and removed and found to be benign. A CT scan was performed which did show a small amount of inflammation along the cecum. This is nonspecific. There are no signs to indicate any complications with no surrounding fluid or abscess formation. She does not report taking antibiotics recently. On examination, the pain appears to be more diffuse in all 4 quadrants of the abdomen. PAST MEDICAL HISTORY: Severe osteoporosis, degenerative joint disease, hypercholesterolemia, scoliosis, fibromyalgia, chronic pain syndrome, PTSD, bipolar disorder, anxiety. PAST SURGICAL HISTORY: Cervical fusion, cardiac catheterization approximately 2 years ago, which she states was normal, section, total hysterectomy, cholecystectomy, tonsillectomy, lysis of adhesions. MEDICATIONS: Alprazolam 1 mg t.i.d. p.r.n., gabapentin 100 mg daily, gemfibrozil 600 mg daily, meloxicam 15 mg daily, oxycodone p.r.n., Paxil 70 mg daily, MiraLax daily, promethazine 50 mg p.r.n., teriparatide 600 mg subcu, tizanidine 4 mg daily. SOCIAL HISTORY: Negative smoke. Negative alcohol. Does use marijuana for pain control. FAMILY HISTORY: Noncontributory. VITAL SIGNS: Temperature 98.3, pulse 70, respirations 18, pulse ox 99% on room air. REVIEW OF SYSTEMS: Well-nourished female currently in distress secondary to the abdominal pain and is emotional at this time. She does not report any shortness of breath and difficulty breathing. No chest pain, palpitations, diaphoresis. No nausea or vomiting. Longstanding history of constipation with the last bowel movement today, which she reports as normal for consistency. No red blood per rectum and no mucous stools. No fever or chills. No recent inadvertently weight loss. PHYSICAL EXAMINATION: CHEST: A few scattered rales bilaterally. HEART: Regular. EXTREMITIES: No lower extremity edema. NECK: No Giovany sign. HEENT: No scleral icterus. No cervical lymphadenopathy. ABDOMEN: Soft, nondistended. There is pain in all 4 abdominal quadrants, which is mild and diffuse. No peritoneal signs. LABORATORY DATA: WBC 8.8, hemoglobin 15.0, hematocrit 43, platelets of 355. Liver function enzymes are normal. ASSESSMENT AND PLAN: A 55-year-old female with focal area of colonic wall thickening near the cecum consistent with a mild segmental colitis of unknown etiology. This may be due to a bacterial overgrowth; however, may be due to low flow states and dehydration versus an undiagnosed mild inflammatory bowel disease. Due to these findings, we will recommend a colonoscopy in the next 2 weeks. For now, we will conservatively treat her with intravenous antibiotics and bowel rest with a clear liquid diet. It appears that she is an inconsiderable amount of pain, and we will proceed with a trial of a fentanyl patch and start at 25 mg q.72 hours as well as morphine p.r.n. and her home medications including Percocet p.r.n. for now. Job ID: [id number] DocumentID: [id number] Dictated Date: 08/12/2016 17:08:51 Medical Scientist Date: 08/12/2016 18:22:06 Dictated By: ISAIAH JARAMILLO MD [facility] HOSPITALFransisco
[2016-08-12 20:00] VITALS: BP 127/85
[2016-08-12] MEDS ORDERED: traZODone 50 MG (DESYREL) TAB PO PRN (20:30)
[2016-08-12] MEDS: PANTOPRAZOLE 40 MG/10 ML (PROTONIX) VIAL IV SCH (20:56)
[2016-08-13 00:10] VITALS: BP 107/57
[2016-08-13] MEDS: morphine INJ 10 MG/ML 1ML (SYR OR VIAL) IVP PRN (00:16)
[2016-08-13] MEDS: metroNIDAZOLE 500 MG/100 ML IVPB (PRE-MIX) IV SCH ×2 (00:16→05:36)
[2016-08-13] MEDS: NS IV 1000 ML 1,000 ML IV SCH (02:21)
[2016-08-13 04:10] VITALS: BP 113/58
[2016-08-13] MEDS: oxyCODONE/APAP 10/325MG (PERCOCET 10) TABLET PO PRN ×2 (04:11→08:04)
[2016-08-13 05:28] LABS: BASOPHILS % (AUTO) 0 % (0-10); EOSINOPHILS # (AUTO) 0.2 10^3/uL (0.0-0.3); EOSINOPHILS % (AUTO) 2 % (0-10); LYMPHOCYTES # (AUTO) 2.9 X 10^3 (1.0-4.0); LYMPHOCYTES % (AUTO) 44 % (12-44); MEAN CORPUSCULAR HEMOGLOBIN 29 PG (25-34); MEAN CORPUSCULAR HGB CONC 33 G/DL (32-36); MEAN CORPUSCULAR VOLUME 89 FL (80-99); MONOCYTES # (AUTO) 0.4 X 10^3 (0.0-1.0); MONOCYTES % (AUTO) 7 % (0-12); NEUTROPHILS % (AUTO) 47 % (42-75); PLATELET COUNT 297 10^3/uL (130-400); RED BLOOD COUNT 4.59 10^6/uL (4.35-5.85); RED CELL DISTRIBUTION WIDTH 12.3 % (10.0-14.5); WHITE BLOOD COUNT 6.5 10^3/uL (4.3-11.0)
[2016-08-13 05:49] LABS: ALANINE AMINOTRANSFERASE 25 U/L (0-55); ALBUMIN 3.8 G/DL (3.2-4.5); ANION GAP 9 MMOL/L (5-14); ASPARTATE AMINO TRANSFERASE 36 U/L (5-34); BILIRUBIN,TOTAL 0.4 MG/DL (0.1-1.0); BLOOD UREA NITROGEN 7 MG/DL (7-18); BUN/CREATININE RATIO 8; CALCIUM 8.8 MG/DL (8.5-10.1); CARBON DIOXIDE 25 MMOL/L (21-32); CHLORIDE 108 MMOL/L (98-107); CREATININE SERUM 0.89 MG/DL (0.60-1.30); GFR ESTIMATED > 60; GLUCOSE 94 MG/DL (70-105); POTASSIUM 3.8 MMOL/L (3.6-5.0); SODIUM 142 MMOL/L (135-145); TOTAL PROTEIN 6.3 G/DL (6.4-8.2)
[2016-08-13] MEDS: ALPRAZolam 1 MG (XANAX) TAB PO PRN (05:50)
[2016-08-13 08:00] VITALS: BP 155/85
[2016-08-13] MEDS: PANTOPRAZOLE 40 MG/10 ML (PROTONIX) VIAL IV SCH (08:04)
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
[2016-08-13] MEDS ORDERED: FENT1PAT57 TD (10:55)
[2016-08-13] MEDS ORDERED: OXYC-202 PO (10:55)
--- NOTE | 2016-08-13 11:03 | Progress Note (SOAP) ---
Subjective Subjective/Events-last exam doing ok from GI standpoint. feels hungry. having BM's. mild abdominal pain but has severe chronic pain issues. Objective Exam Vital Signs Date Time Temp Pulse Resp B/P (MAP) Pulse Ox O2 Delivery O2 Flow Rate FiO2 08/13/16 08:00 97.5 69 20 155/85 96 08/13/16 04:10 97.9 69 18 113/58 92 08/13/16 00:10 98.5 65 18 107/57 92 08/12/16 20:00 97.3 81 16 127/85 92 08/12/16 16:00 96.0 69 20 146/86 95 08/12/16 12:44 98.8 69 18 172/78 95 08/12/16 12:13 68 18 97 I & O 08/13/16 07:00 Intake Total 3070 ml Output Total 2200 ml Balance 870 ml Capillary Refill : Less Than 3 Seconds General Appearance: No Apparent Distress HEENT: PERRL/EOMI Neck: Full Range of Motion Respiratory: Chest Non Tender, Lungs Clear Cardiovascular: Regular Rate, Rhythm Gastrointestinal: normal bowel sounds, soft Extremity: Normal Capillary Refill Neurologic/Psychiatric: Alert, Oriented x3 Skin: Normal Color Lymphatic: No Adenopathy Results Lab Laboratory Tests 08/12/16 12:04: Lactic Acid Level 0.81 08/13/16 05:03: White Blood Count 6.5, Red Blood Count 4.59, Hemoglobin 13.5, Hematocrit 41, Mean Corpuscular Volume 89, Mean Corpuscular Hemoglobin 29, Mean Corpuscular Hemoglobin Concent 33, Red Cell Distribution Width 12.3, Platelet Count 297, Mean Platelet Volume 9.0, Neutrophils (%) (Auto) 47, Lymphocytes (%) (Auto) 44, Monocytes (%) (Auto) 7, Eosinophils (%) (Auto) 2, Basophils (%) (Auto) 0, Neutrophils # (Auto) 3.0, Lymphocytes # (Auto) 2.9, Monocytes # (Auto) 0.4, Eosinophils # (Auto) 0.2, Basophils # (Auto) 0.0, Sodium Level 142, Potassium Level 3.8, Chloride Level 108H, Carbon Dioxide Level 25, Anion Gap 9, Blood Urea Nitrogen 7, Creatinine 0.89, Estimat Glomerular Filtration Rate > 60, BUN/ Creatinine Ratio 8, Glucose Level 94, Calcium Level 8.8, Total Bilirubin 0.4, Aspartate Amino Transf (AST/SGOT) 36H, Alanine Aminotransferase (ALT/SGPT) 25, Alkaline Phosphatase 80, Total Protein 6.3L, Albumin 3.8 Assessment/Plan Assessment/Plan Assess & Plan/Chief Complaint mild segmental colitis. has severe chronic pain issues due to premature osteoporosis secondary hysterectomy at age 16. will have cervical spine surgery in next 3-4 weeks. may go home however will recommend colonoscopy before spinal surgery. f/u in office in one week. Clinical Quality Measures DVT/VTE Risk/Contraindication: Risk Factor Score Per Nursin RFS Level Per Nursing on Admit: 3=High ISAIAH JARAMILLO MD August 13, 2016 11:03 am
[2016-08-13] MEDS ORDERED: morphine INJ 10 MG/ML 1ML (SYR OR VIAL) IVP PRN (12:00)
[2016-08-15] MEDS ORDERED: FENTANYL PATCH REMOVAL TP SCH (16:44)
== END 2016-08-13 10:51 | disposition home or self-care (01) ==
LOC: EDUNIT# 08:34 → ER 08:36 → UNDOADMOB 11:24 → 4TH 11:24 → UNDODISOB 08-13 11:10
PROVIDERS: ADMIT Internal Medicine; ATTEND Internal Medicine
DX: K52.9 Noninfective gastroenteritis and colitis, unspecified (principal); E78.00 Pure hypercholesterolemia, unspecified; M79.7 Fibromyalgia; G89.29 Other chronic pain; F31.9 Bipolar disorder, unspecified; F41.9 Anxiety disorder, unspecified; M81.0 Age-related osteoporosis without current pathological fracture; F12.90 Cannabis use, unspecified, uncomplicated; Z79.899 Other long term (current) drug therapy; Z79.891 Long term (current) use of opiate analgesic; Z90.49 Acquired absence of other specified parts of digestive tract; Z90.710 Acquired absence of both cervix and uterus
CPT/HCPCS: 36415; 74177; 80053; 80306; 81000; 83605; 83735; 85025; 86141; 87040; 96361; 96374; 96375; 99211; G0378

== ENCOUNTER → 2016-08-24 | Outpatient (CLI) | payer BC ==
[~2016-08-24] MED LIST changes: +D50KC PO; +FENT1PAT57 TD; +MELO15TA39 PO; +OXYC-202 PO; +OXYC-471 PO; +POLY255P PO; +TERI202.4P SQ; +TIZA4TAB3 PO; +TRAZ-28 PO
== END ==
LOC: PREOP 05:52
PROVIDERS: ATTEND Surgery Pediatric Surgery
DX: Z01.818 Encounter for other preprocedural examination (principal); Z86.010 Personal history of colon polyps

== ENCOUNTER 2016-08-25 10:20 | Day surgery (SDC) | payer BC ==
[~2016-08-25] VITALS: Ht 167.6 cm; Wt 80.0 kg
[2016-08-25] MEDS ORDERED: NS IV 500 ML 500 ML ONE (10:27)
[2016-08-25] MEDS ORDERED: fentaNYL INJECTION 100 MCG/2 ML AMP IVP PRN (10:30)
[2016-08-25] MEDS ORDERED: NS IV 500 ML 500 ML IV PRN (10:30)
[2016-08-25] MEDS ORDERED: NALOXONE 0.4 MG/ML 1 ML (NARCAN) VIAL IVP PRN (10:30)
[2016-08-25] MEDS ORDERED: MIDAZOLAM 2 MG/2 ML (VERSED) VIAL IVP PRN (10:30)
[2016-08-25] MEDS ORDERED: FLUMAZENIL (ROMAZICON) 0.1 MG/ML 5 ML VIAL INJ PRN (10:30)
[2016-08-25 10:40] VITALS: BP 114/82
--- NOTE | 2016-08-25 10:54 | Conscious Sedation/ASA ---
Conscious Sedation Pre-Proced Time Reviewed: 10:50 ASA Class: 2 Airway Mallampati Classification: ([place] appropriate class) I. II. III, IV Lungs Heart ASA score ASA 1: a normal healthy patient ASA 2: a patient with a mild systemic disease (mid diabetes, controlled hypertension, obesity ASA 3: a patient with a severe systemic disease that limits activity (angina , COPD, prior Myocardial infarction) ASA 4: a patient with an incapacitating disease that is a constant threat to life (CHF, renal failure) ASA 5: a moribund patient not expected to survive 24 hrs. (ruptured aneurysm) ASA 6: a declared brain patient whose organs are being harvested. For emergent operations, add the letter E after the classification Grade 2 Sedation Plan: Analgesia, Amnesia, Plan communicated to team members, Discussed options with patient/fam, Discussed risks with patient/fam Note The patient is an appropriate candidate to undergo the planned procedure, sedation, and anesthesia. The patient immediately re-assessed prior to indication. ISAIAH JARAMILLO MD August 25, 2016 10:54 am
--- NOTE | 2016-08-25 10:55 | Progress Note-Pre Operative ---
Pre-Operative Progress Note H&P Reviewed The H&P was reviewed, patient examined and no changes noted. Date H&P Reviewed: August 25, 2016 Time H&P Reviewed: 10:50 Pre-Operative Diagnosis: hx colitis ISAIAH JARAMILLO MD August 25, 2016 10:55 am
[2016-08-25] MEDS ORDERED: ACETAMINOPHEN 325 MG TABLET/CAPLET (TYLENOL) PO PRN (11:00)
[2016-08-25] MEDS ORDERED: ONDANSETRON 4 MG/2 ML (SDV) Z0FRAN IV PRN (11:00)
[2016-08-25] MEDS ORDERED: morphine INJ 10 MG/ML 1ML (SYR OR VIAL) IV PRN (11:00)
[2016-08-25] MEDS ORDERED: HYDROcodone/APAP 5 MG/325 MG (LORTAB) TAB PO PRN (11:00)
[2016-08-25] MEDS ORDERED: MIDAZOLAM 2 MG/2 ML (VERSED) VIAL ONE (11:48)
[2016-08-25] MEDS ORDERED: PROPOFOL INJECTION 50 ML IV ONE (11:48)
[2016-08-25] MEDS ORDERED: PHENYLEPHRINE 100 MCG/ML 10 ML (ANESTHESIA) SYR ONE (12:09)
[2016-08-25 12:55] VITALS: BP 114/82
[2016-08-25 13:25] VITALS: BP 112/74
--- NOTE | 2016-08-25 13:44 | Progress Note-Post Operative ---
Post-Operative Progess Note Surgeon (s)/Motion Picture Commentator (s) Surgeon ISAIAH JARAMILLO MD Motion Picture Commentator: none Pre-Operative Diagnosis hx colitis Post-Operative Diagnosis chronic stage 1 ext and int hemorrhoids, mild sigmoid diverticulosis, small HP polyp rectum(2mm) Procedure & Operative Findings Date of Procedure 08/25/16 Procedure Performed/Findings Colonoscopy with bx Anesthesia Type CS Estimated Blood Loss Estimated blood loss (mL): minimal Specimens/Packing Specimens Removed rectal polyp ISAIAH JARAMILLO MD August 25, 2016 1:44 pm
--- NOTE | 2016-08-26 03:36 | OPERATIVE REPORT ---
DATE OF SERVICE: 08/25/2016 ATTENDING DIRECTOR OF WORKFORCE DEVELOPMENT: [facility]. PREOPERATIVE DIAGNOSIS: History of colitis and severe degenerative joint disease. POSTOPERATIVE DIAGNOSES: Chronic stage I external and internal hemorrhoids, small hyperplastic polyp of the rectum, 2 mm in size, mild sigmoid diverticulosis. There was no inflammation near the cecum detected on CT scan. PROCEDURE: Colonoscopy with biopsy. SURGEON: Dr. Hdez. ANESTHESIA: Monitored anesthesia care administered by anesthesia. ESTIMATED BLOOD LOSS: Minimal. FINDINGS: Chronic stage I external and internal hemorrhoids, small hyperplastic polyp of the rectum, 2 mm in size, mild sigmoid diverticulosis. The remainder of the colon was normal. There were no inflammatory changes to indicate any active or chronic colitis as well as no neoplasms. DISPOSITION: The patient tolerated the procedure well. INDICATIONS: The patient is a 55-year-old female who presented [facility] on 08/12/2016 for a lower quadrant abdominal pain. She had reported a long complicated history starting with cervical cancer diagnosed at 16 years of age requiring a total hysterectomy at the time. Due to estrogen deficiency, she did develop a significant osteoporosis as well as degenerative joint disease and chronic pain syndromes. She reports that she has had issues with degenerative joint disease, scoliosis, bone demineralization and associated pain as well as different medications; however, this has not helped with her pain. She was also started on Forteo, which is recumbent DNA to help with bone regrowth however, continues to have pain. She reported that 5 years ago a polyp was identified and found to be benign. On that admission, a CT scan was performed which did show a small amount of inflammation along the cecum which was nonspecific. There were no signs of abscess or any neoplasms. She also does not report any diarrhea as well as no red blood per rectum nor any dark tarry stools. DESCRIPTION OF PROCEDURE: The patient was brought to the endoscopy suite. After adequate IV pain and sedating medications and monitored anesthesia care administered by anesthesia, a digital rectal examination was performed. Mild chronic stage I external and internal hemorrhoids were identified which are not actively edematous, nor inflamed and no bleeding. Normal sphincter tone was felt and there were no palpable masses. The endoscope was then intubated into the anus and rectum and gently insufflated. The endoscope was then advanced to the valves of the Rangel of the rectum. At approximately the second valve of Rangel a small hyperplastic polyp approximately 2 mm in size was identified. This was biopsied and destroyed using forceps and electrocautery with visualization of good hemostasis. The endoscope was then advanced to the sigmoid colon where mild sigmoid diverticulosis identified. There were no mucosal inflammatory change to indicate any active diverticulitis. The endoscope was then advanced to the remainder of the descending, transverse and ascending colon to the cecum. At all these segments of colon there were no mucosal inflammation to indicate any active colitis. There was also no tumors or other neoplasms identified as well. The endoscope was then slowly withdrawn taking a second look and suctioning all residual air with no additional findings. The patient tolerated the procedure well. We will recommend a high fiber diet with at least 25 to 30 grams of fiber per day as well as at least 64 fluid ounces of water to promote soft stools on a daily basis. The hyperplastic polyps not have a malignancy potential; however, there is slightly increased chance of a metachronous lesion and we will recommend a followup colonoscopy in 5 years. There is no contraindication to proceeding with a cervical spine surgery, which she is scheduled for. Job ID: [id number] DocumentID: [id number] Dictated Date: 08/25/2016 13:51:45 Ethylene Plant Helper Date: 08/25/2016 22:40:30 Dictated By: MD LILY THOMAS
== END 2016-08-25 13:35 | disposition home or self-care (01) ==
LOC: ENDO 10:20
PROVIDERS: ATTEND Surgery Pediatric Surgery
DX: K62.1 Rectal polyp (principal); K57.30 Diverticulosis of large intestine without perforation or abscess without bleeding; K64.0 First degree hemorrhoids; M81.8 Other osteoporosis without current pathological fracture; G89.29 Other chronic pain; M41.9 Scoliosis, unspecified; Z85.41 Personal history of malignant neoplasm of cervix uteri; Z98.1 Arthrodesis status; F41.9 Anxiety disorder, unspecified; M79.7 Fibromyalgia; F31.9 Bipolar disorder, unspecified; F43.10 Post-traumatic stress disorder, unspecified; M54.9 Dorsalgia, unspecified; Z86.010 Personal history of colon polyps; Z79.899 Other long term (current) drug therapy

== ENCOUNTER → 2016-10-21 | Outpatient (CLI) | payer BC ==
[~2016-10-21] MED LIST changes: -D50KC PO; +ERGO50006 PO
--- NOTE | 2016-10-21 17:24 | Diagnostic Imaging Report ---
Three views of the cervical spine. INDICATION: Neck pain. FINDINGS: There is straightening of the lordotic curvature of the cervical spine. There is anterior fusion hardware noted at C4/C5 and C6/C7 levels. There is solid osseous fusion suggested between C5/C7 levels. No obvious osseous fusion between vertebral bodies C4 and C5. The open-mouth odontoid view appears grossly unremarkable. No significant posterior osteophytes are seen. There is minimal anterior osteophyte formation at C3/C4 level. IMPRESSION: Post cervical fusion changes as described. Dictated by: Dictated on workstation # [id number]
== END ==
LOC: RAD 12:33
DX: M54.2 Cervicalgia (principal); Z98.1 Arthrodesis status
CPT/HCPCS: 72040

== ENCOUNTER 2017-06-13 07:51 | Emergency (ER) | payer BC ==
[~2017-06-13] VITALS: Ht 167.6 cm; Wt 72.6 kg
[~2017-06-13 07:51] MED LIST changes: +ACHD5005 PO; -HYDR-3812 PO
--- OUTSIDE RECORDS SUMMARY | 2017-06-13 07:57 | XMS REPORT ---
Author [facility] Address [address] [place] [address] Care Team Providers Care Deputy Director Of Nursing Name Role Phone CHARLES SILVA Unavailable PROBLEMS Type Condition ICD9-CM Code [id number] Code Onset Dates Condition Status SNOMED Code Problem Mood and affect disturbance F39 Active 62740124 Problem Acute cystitis with hematuria N30.01 Active 71698063 Problem Panlobular emphysema J43.1 Active 6072324 Problem Creatinine elevation R79.89 Active 038196012 Problem Osteoporosis M81.0 Active 25983504 Problem Vitamin D deficiency E55.9 Active 30419971 Problem Hypertriglyceridemia E78.1 Active 903878027 Problem High risk medication use Z79.899 Active 630899761 ALLERGIES Substance Reaction Event Type Date Status Penicillins Unknown Non Drug Allergy Apr, Active SOCIAL HISTORY Never Assessed PLAN OF CARE Activity Details Follow Up 4 Weeks Reason:pain follow up Pending Test CALCIUM VITAL SIGNS Height 68 in 2016-05-11 Weight 178.2 lbs 2016-05-11 Temperature 97.3 degrees Fahrenheit 2016-05-11 Heart Rate 98 bpm 2016-05-11 Respiratory Rate 18 2016-05-11 BMI 27.09 kg/m2 2016-05-11 Blood pressure systolic 138 mmHg 2016-05-11 Blood pressure diastolic 90 mmHg 2016-05-11 MEDICATIONS Medication Instructions Dosage Frequency Start Date End Date Duration Status [place] 5-325 MG Orally 3 times a day 1 tablet as needed for severe pain 8h Apr, Apr, 0 days Active Alprazolam 1 mg 5 times per day Aug, Active Lidoderm 5 % Externally Once a day 1 patch to skin remove after 12 hours 24h Apr, Apr, 0 days Active Paroxetine HCl 30 mg 1 time per day Aug, Active Proventil HFA 108 (90 Base) MCG/ACT Inhalation every 4 hrs 2 puffs as needed 4h Apr, 0 days Active Gabapentin 100 MG Orally Three times a day 1 capsule dly x 1 wk, then bid x 1 wk, then tid 8h Mar, Active Trazodone HCl 50 MG Orally One to two at bedtime 1 tablet at bedtime as needed Active Polyethylene Glycol 3350 17 gm/dose Orally Once a day 1 scoop 24h Feb, Active Black Cohosh 200 MG Active RESULTS Name Result Date Reference Range CALCIUM IONIZED 2016-05-11 Calcium, Ionized, Serum 5.1 4.5-5.6 TSH W/ FREE T4 2016-05-11 TSH 1.220 0.450-4.500 T4,Free(Direct) 0.85 0.82-1.77 CBC 2016-05-11 WBC 10.9 3.4-10.8 RBC 4.67 3.77-5.28 Hemoglobin 14.2 11.1-15.9 Hematocrit 40.1 34.0-46.6 MCV 86 79-97 MCH 30.4 26.6-33.0 MCHC 35.4 31.5-35.7 RDW 13.9 12.3-15.4 Platelets 343 150-379 Neutrophils 66 Lymphs 29 Monocytes 4 Eos 1 Basos 0 Neutrophils (Absolute) 7.2 1.4-7.0 Lymphs (Absolute) 3.2 0.7-3.1 Monocytes(Absolute) 0.4 0.1-0.9 Eos (Absolute) 0.1 0.0-0.4 Baso (Absolute) 0.0 0.0-0.2 Immature Granulocytes 0 Immature Grans (Abs) 0.0 0.0-0.1 VITAMIN D, 25-H 2016-05-11 Vitamin D, 25-Hydroxy 38.1 30.0-100.0 LIPID PANEL 2016-05-11 Cholesterol, Total 318 100-199 Triglycerides 367 0-149 HDL Cholesterol 35 >39 VLDL Cholesterol Sean 73 5-40 LDL Cholesterol Calc 210 0-99 CMP 2016-05-11 Glucose, Serum 89 65-99 BUN 9 6-24 Creatinine, Serum 1.27 0.57-1.00 eGFR If NonAfricn Am 47 >59 eGFR If Africn Am 54 >59 BUN/Creatinine Ratio 7 9-23 Sodium, Serum 143 134-144 Potassium, Serum 4.4 3.5-5.2 Chloride, Serum 103 96-106 Carbon Dioxide, Total 18 18-29 Calcium, Serum 9.6 8.7-10.2 Protein, Total, Serum 7.1 6.0-8.5 Albumin, Serum 4.7 3.5-5.5 Globulin, Total 2.4 1.5-4.5 A/G Ratio 2.0 1.1-2.5 Bilirubin, Total <0.2 0.0-1.2 Alkaline Phosphatase, S 89 39-117 AST (SGOT) 15 0-40 ALT (SGPT) 19 0-32 AMERIT[employer] PROCEDURES Procedure Date Ordered Result Body Site No Charge May 11, 2016 ROUTINE VENIPUNCTURE 2016-05-11 N/A ASSAY OF CALCIUM May 11, 2016 LIPID PANEL May 11, 2016 ASSAY OF VITAMIN D May 11, 2016 COMPLETE CBC W/AUTO DIFF WBC May 11, 2016 ASSAY THYROID STIM HORMONE May 11, 2016 ASSAY OF CALCIUM May 11, 2016 COMPREHEN METABOLIC PANEL May 11, 2016 ASSAY OF FREE THYROXINE May 11, 2016 IMMUNIZATIONS No Known Immunizations MEDICAL (GENERAL) HISTORY Type Description Date Medical History PTSD Medical History Bipolar Medical History chronic back pain Medical History OCD, Depression, Anxiety Medical History CT 2016 Emphysema, fatty liver disease Surgical History hystorectomy age 15 Surgical History Neck Surgery Surgical History Gallbladder Surgical History Adhesion removal
--- OUTSIDE RECORDS SUMMARY | 2017-06-13 07:57 | XMS REPORT ---
Author Author KAYLEE LEE Organization [facility] Address Unknown Phone Unavailable Care Team Providers Care Product Evangelist Name Role Phone KAYLEE LEE Unavailable Unavailable PROBLEMS Type Condition ICD9-CM Code [id number] Code Onset Dates Condition Status SNOMED Code Problem Mood and affect disturbance F39 Active 88511461 Problem Acute cystitis with hematuria N30.01 Active 51986907 Problem Panlobular emphysema J43.1 Active 6540562 Problem Creatinine elevation R79.89 Active 587098536 Problem Osteoporosis M81.0 Active 05266668 Problem Vitamin D deficiency E55.9 Active 95679773 Problem Hypertriglyceridemia E78.1 Active 247830774 Problem High risk medication use Z79.899 Active 712175512 ALLERGIES No Information SOCIAL HISTORY Never Assessed PLAN OF CARE VITAL SIGNS MEDICATIONS Unknown Medications RESULTS No Results PROCEDURES No Known procedures IMMUNIZATIONS No Known Immunizations MEDICAL (GENERAL) HISTORY Type Description Date Medical History PTSD Medical History Bipolar Medical History chronic back pain Medical History OCD, Depression, Anxiety Medical History CT 2016 Emphysema, fatty liver disease Surgical History hystorectomy age 15 Surgical History Neck Surgery Surgical History Gallbladder Surgical History Adhesion removal
--- OUTSIDE RECORDS SUMMARY | 2017-06-13 07:57 | XMS REPORT ---
Author Author KEYANNAGERONIMO CHARLES [facility] Address [address] [place] [address] Care Team Providers Care Tour Narrator Name Role Phone CHARLES SILVA Unavailable PROBLEMS Type Condition ICD9-CM Code [id number] Code Onset Dates Condition Status SNOMED Code Problem Mood and affect disturbance F39 Active 43121282 Problem Acute cystitis with hematuria N30.01 Active 10909613 Problem Panlobular emphysema J43.1 Active 3591183 Problem Creatinine elevation R79.89 Active 049935860 Problem Osteoporosis M81.0 Active 03747202 Problem Vitamin D deficiency E55.9 Active 03269282 Problem Hypertriglyceridemia E78.1 Active 921637970 Problem High risk medication use Z79.899 Active 427062944 ALLERGIES Substance Reaction Event Type Date Status Phenergan drowsy Drug Allergy May, Active Penicillins Unknown Non Drug Allergy May, Active SOCIAL HISTORY Never Assessed PLAN OF CARE Activity Details Follow Up 2 Months Reason:chronic pain VITAL SIGNS Height 68 in 2016-06-08 Weight 181.5 lbs 2016-06-08 Temperature 97.2 degrees Fahrenheit 2016-06-08 Heart Rate 90 bpm 2016-06-08 Respiratory Rate 18 2016-06-08 BMI 27.59 kg/m2 2016-06-08 Blood pressure systolic 138 mmHg 2016-06-08 Blood pressure diastolic 72 mmHg 2016-06-08 MEDICATIONS Medication Instructions Dosage Frequency Start Date End Date Duration Status Polyethylene Glycol 3350 17 gm/dose Orally Once a day 1 scoop 24h Feb, Active Trazodone HCl 50 MG Orally One to two at bedtime 1 tablet at bedtime as needed Active Alprazolam 1 mg 5 times per day Aug, Active Forteo 600 MCG/2.4ML Subcutaneous Once a day 0.08 ml 24h Active Paroxetine HCl 30 mg 1 time per day Aug, Active Cholecalciferol 5000 UNIT Orally Once a day-Per Dr. Gomez 1 capsule Apr, 30 day(s) Active Proventil HFA 108 (90 Base) MCG/ACT Inhalation every 4 hrs 2 puffs as needed 4h Apr, 0 days Active Black Cohosh 200 MG Active Calcium Active [place] 5-325 MG Orally 3 times a day 1 tablet as needed for severe pain 8h Apr, 0 days Active RESULTS Name Result Date Reference Range URINE PROTEIN TO CREATININE RATIO 2016-06-08 Creatinine, Urine 155.3 Not Estab. Protein,Total,Urine 18.7 Not Estab. Protein/Creat Ratio 120 0-200 UA W/ MICROSCOPY 2016-06-08 Specific [place] 1.014 1.005-1.030 pH 6.0 5.0-7.5 Urine-Color Yellow Yellow Appearance Cloudy Clear WBC Esterase Negative Negative Protein Negative Negative/Trace Glucose Negative Negative Ketones Negative Negative Occult Blood Negative Negative Bilirubin Negative Negative Urobilinogen,Semi-Qn 0.2 0.2-1.0 Nitrite, Urine Negative Negative Microscopic Examination Microscopic Examination See below: WBC None seen 0 - 5 RBC None seen 0 - 2 Epithelial Cells (non renal) 0-10 0 - 10 Mucus Threads Present Not Estab. Bacteria Few None seen/Few CULTURE, URINE 2016-06-08 Urine Culture, Routine Final report Result 1 No growth PROCEDURES Procedure Date Ordered Result Body Site ASSAY OF PROTEIN, URINE June 08, 2016 ASSAY OF URINE CREATININE June 08, 2016 URINE CULTURE/COLONY COUNT June 08, 2016 URINALYSIS, AUTO W/SCOPE June 08, 2016 IMMUNIZATIONS No Known Immunizations MEDICAL (GENERAL) HISTORY Type Description Date Medical History PTSD Medical History Bipolar Medical History chronic back pain Medical History OCD, Depression, Anxiety Medical History CT 2016 Emphysema, fatty liver disease Surgical History hystorectomy age 15 Surgical History Neck Surgery Surgical History Gallbladder Surgical History Adhesion removal
--- OUTSIDE RECORDS SUMMARY | 2017-06-13 07:57 | XMS REPORT ---
Author Author [facility]LES SILVA [facility] Address [address] [place] [address] Care Team Providers Care Student Ambassador Name Role Phone CHARLES SILVA Unavailable PROBLEMS Type Condition ICD9-CM Code [id number] Code Onset Dates Condition Status SNOMED Code Problem Mood and affect disturbance F39 Active 44883171 Problem Acute cystitis with hematuria N30.01 Active 18089637 Problem Panlobular emphysema J43.1 Active 2478297 Problem Creatinine elevation R79.89 Active 878949858 Problem Osteoporosis M81.0 Active 50550295 Problem Vitamin D deficiency E55.9 Active 35109233 Problem Hypertriglyceridemia E78.1 Active 025357338 Problem High risk medication use Z79.899 Active 878010388 ALLERGIES No Information SOCIAL HISTORY Never Assessed [...]
--- OUTSIDE RECORDS SUMMARY | 2017-06-13 07:57 | XMS REPORT ---
Author Author [facility]IMO [facility]LES [facility] Address [address] [place] [address] Care Team Providers Care Forest Products Gatherer Name Role Phone CHARLES SILVA Unavailable PROBLEMS Type Condition ICD9-CM Code HUE69-NF Code Onset Dates Condition Status SNOMED Code Problem Mood and affect disturbance F39 Active 68426116 Problem Acute cystitis with hematuria N30.01 Active 48003280 Problem Panlobular emphysema J43.1 Active 7731043 Problem Creatinine elevation R79.89 Active 166917498 Problem Osteoporosis M81.0 Active 18391844 Problem Vitamin D deficiency E55.9 Active 89165769 Problem Hypertriglyceridemia E78.1 Active 565310353 Problem High risk medication use Z79.899 Active 890689057 ALLERGIES Substance Reaction Event Type Date Status Penicillins Unknown Non Drug Allergy Apr, Active SOCIAL HISTORY Never Assessed PLAN OF CARE VITAL SIGNS MEDICATIONS Medication Instructions Dosage Frequency Start Date End Date Duration Status Black Cohosh 200 MG Active Polyethylene Glycol 3350 17 gm/dose Orally Once a day 1 scoop 24h Feb, Active Alprazolam 1 mg 5 times per day Aug, Active Gabapentin 100 MG Orally Three times a day 1 capsule dly x 1 wk, then bid x 1 wk, then tid 8h Mar, Active Paroxetine HCl 30 mg 1 time per day Aug, Active Proventil HFA 108 (90 Base) MCG/ACT Inhalation every 4 hrs 2 puffs as needed 4h Apr, 0 days Active Cholecalciferol 5000 UNIT Orally Once a day-Per Dr. Gomez 1 capsule Apr, 30 day(s) Active Trazodone HCl 50 MG Orally One to two at bedtime 1 tablet at bedtime as needed Active Tramadol HCl 50 MG Orally TID 1 TABLET 8h Active Lopid 600 MG Orally Twice a day 1 tablet 12h Apr, Active RESULTS No Results PROCEDURES No Known procedures IMMUNIZATIONS No Known Immunizations MEDICAL (GENERAL) HISTORY Type Description Date Medical History PTSD Medical History Bipolar Medical History chronic back pain Medical History OCD, Depression, Anxiety Medical History CT 2015 Emphysema, fatty liver disease Surgical History hystorectomy age 15 Surgical History Neck Surgery Surgical History Gallbladder Surgical History Adhesion removal
--- OUTSIDE RECORDS SUMMARY | 2017-06-13 07:58 | XMS REPORT ---
Author Author KEYANNAGERONIMO CHARLES [facility] [place] Address [address] [place] [address] Care Team Providers Care Senior Production Supervisor Name Role Phone CHARLES SILVA Unavailable PROBLEMS Type Condition ICD9-CM Code KOM96-DV Code Onset Dates Condition Status SNOMED Code Problem Mood and affect disturbance F39 Active 24673469 Problem Acute cystitis with hematuria N30.01 Active 34947453 Problem Panlobular emphysema J43.1 Active 0632982 Problem Creatinine elevation R79.89 Active 534295676 Problem Osteoporosis M81.0 Active 44321490 Problem Vitamin D deficiency E55.9 Active 08943022 Problem Hypertriglyceridemia E78.1 Active 257952280 Problem High risk medication use Z79.899 Active 542782409 ALLERGIES Substance Reaction Event Type Date Status Phenergan drowsy Drug Allergy July, Active Penicillins Unknown Non Drug Allergy July, Active SOCIAL HISTORY Never Assessed PLAN OF CARE Activity Details Follow Up 2 Months Reason:surgery follow up VITAL SIGNS Height 68 in 2016-08-11 Weight 177.3 lbs 2016-08-11 Temperature 97.1 degrees Fahrenheit 2016-08-11 Heart Rate 72 bpm 2016-08-11 Respiratory Rate 18 2016-08-11 BMI 26.96 kg/m2 2016-08-11 Blood pressure systolic 132 mmHg 2016-08-11 Blood pressure diastolic 76 mmHg 2016-08-11 MEDICATIONS Medication Instructions Dosage Frequency Start Date End Date Duration Status Polyethylene Glycol 3350 - Orally Once a day 1 scoop 24h Feb, Active Cholecalciferol 5000 UNIT Orally Once a day-Per Dr. Gomez 1 capsule Apr, 30 day(s) Active Black Cohosh 200 MG Active Proventil HFA 108 (90 Base) MCG/ACT Inhalation 4 times a day 2 puffs as needed 6h Apr, Active Mobic 15 MG Orally Once a day 1 tablet 24h Active Paroxetine HCl 40 MG 1 time per day Aug, Active Trazodone HCl 50 MG Orally One to two at bedtime 1 tablet at bedtime as needed Active Forteo 600 MCG/2.4ML Subcutaneous Once a day 0.08 ml 24h Active Tizanidine HCl 4 MG Orally Three times a day 1 tablet as needed 8h Active Alprazolam 1 mg 5 times per day Aug, Active Percodan 5 mg by oral route 3 times a day as needed 1 tablet Active Calcium Active RESULTS No Results PROCEDURES No Known [...]
--- OUTSIDE RECORDS SUMMARY | 2017-06-13 07:58 | XMS REPORT ---
Author Author SHIRA CHARLES [facility] Address [address] [place] [address] Care Team Providers Care Regrinder Operator Name Role Phone CHARLES SILVA Unavailable PROBLEMS Type Condition ICD9-CM Code [id number] Code Onset Dates Condition Status SNOMED Code Problem Mood and affect disturbance F39 Active 75349569 Problem Acute cystitis with hematuria N30.01 Active 68514216 Problem Panlobular emphysema J43.1 Active 0365069 Problem Creatinine elevation R79.89 Active 552155818 Problem Osteoporosis M81.0 Active 11388199 Problem Vitamin D deficiency E55.9 Active 99589692 Problem Hypertriglyceridemia E78.1 Active 141637199 Problem High risk medication use Z79.899 Active 381911005 ALLERGIES Substance Reaction Event Type Date Status Penicillins Unknown Non Drug Allergy Mar, Active SOCIAL HISTORY No smoking Hx information available PLAN OF CARE Activity Details Follow Up 4 Weeks Reason:pain follow up VITAL SIGNS Height 68 in 2016-04-07 Weight 180.8 lbs 2016-04-07 Temperature 97.9 degrees Fahrenheit 2016-04-07 Heart Rate 98 bpm 2016-04-07 Respiratory Rate 18 2016-04-07 BMI 27.49 kg/m2 2016-04-07 Blood pressure systolic 122 mmHg 2016-04-07 Blood pressure diastolic 78 mmHg 2016-04-07 MEDICATIONS Medication Instructions Dosage Frequency Start Date End Date Duration Status Trazodone HCl 50 MG Orally One to two at bedtime 1 tablet at bedtime as needed Active Polyethylene Glycol 3350 17 gm/dose Orally Once a day 1 scoop 24h Feb, Active Black Cohosh 200 MG Active Ergocalciferol 34600 UNIT Orally once weekly 1 capsule Mar, Apr, 12 Weeks Active Tramadol HCl 50 MG Orally TID 1 TABLET 8h Active Alprazolam 1 mg 5 times per day Aug, Active Paroxetine HCl 30 mg 1 time per day Aug, Active Gabapentin 300 MG Orally Three times a day 1 capsule dly x 1 wk, then bid x 1 wk, then tid 8h Mar, Active RESULTS No Results PROCEDURES Procedure Date Ordered Related Diagnosis Body Site Office Visit, Est Pt., Level 3 Apr 07, 2016 IMMUNIZATIONS No Known Immunizations
--- OUTSIDE RECORDS SUMMARY | 2017-06-13 07:58 | XMS REPORT ---
Author Author CHARLES SILVA [facility] Address [address] [place] [address] Care Team Providers Care Cook [employer] Name Role Phone CHARLES SILVA Unavailable PROBLEMS Type Condition ICD9-CM Code FLF60-KI Code Onset Dates Condition Status SNOMED Code Problem Mood and affect disturbance F39 Active 15325426 Problem Acute cystitis with hematuria N30.01 Active 83564334 Problem Panlobular emphysema J43.1 Active 0600143 Problem Creatinine elevation R79.89 Active 859521757 Problem Osteoporosis M81.0 Active 95068464 Problem Vitamin D deficiency E55.9 Active 89564198 Problem Hypertriglyceridemia E78.1 Active 834749697 Problem High risk medication use Z79.899 Active 032336868 ALLERGIES No Information SOCIAL HISTORY Never Assessed [...]
--- OUTSIDE RECORDS SUMMARY | 2017-06-13 07:58 | XMS REPORT ---
Author Author [facility] [place] Address [address] [place] [address] Care Team Providers Care Broomcorn Scraper Name Role Phone CHARLES SILVA Unavailable PROBLEMS Type Condition ICD9-CM Code FYV40-RS Code Onset Dates Condition Status SNOMED Code Problem Mood and affect disturbance F39 Active 38600624 Problem Acute cystitis with hematuria N30.01 Active 46892111 Problem Panlobular emphysema J43.1 Active 2472671 Problem Creatinine elevation R79.89 Active 696681031 Problem Osteoporosis M81.0 Active 11895214 Problem Vitamin D deficiency E55.9 Active 50222083 Problem Hypertriglyceridemia E78.1 Active 934507692 Problem High risk medication use Z79.899 Active 676686382 ALLERGIES No Information SOCIAL HISTORY Never Assessed [...]
--- OUTSIDE RECORDS SUMMARY | 2017-06-13 07:58 | XMS REPORT ---
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 Name Role Phone RODRIGUE SHERWOOD Unavailable PROBLEMS Type Condition ICD9-CM Code [id number] Code Onset Dates Condition Status SNOMED Code Problem Mood and affect disturbance F39 Active 55291120 Problem Acute cystitis with hematuria N30.01 Active 44550765 Problem Panlobular emphysema J43.1 Active 0291499 Problem Hypertriglyceridemia E78.1 Active 453644039 Problem Osteoporosis M81.0 Active 71295818 Problem Vitamin D deficiency E55.9 Active 22341464 Problem Creatinine elevation R79.89 Active 946483704 Problem High risk medication use Z79.899 Active 934224347 ALLERGIES Substance Reaction Event Type Date Status Penicillins Unknown Non Drug Allergy Feb, Active SOCIAL HISTORY No smoking Hx information available PLAN OF CARE Activity Details Follow Up 3 Weeks Reason:est care appt VITAL SIGNS Height 68 in 2016-03-12 Weight 180.5 lbs 2016-03-12 Temperature 97.8 degrees Fahrenheit 2016-03-12 Heart Rate 110 bpm 2016-03-12 Respiratory Rate 18 2016-03-12 BMI 27.44 kg/m2 2016-03-12 Blood pressure systolic 120 mmHg 2016-03-12 Blood pressure diastolic 74 mmHg 2016-03-12 MEDICATIONS Medication Instructions Dosage Frequency Start Date End Date Duration Status Alprazolam 1 mg 5 times per day Aug, Active Paroxetine HCl 30 mg 1 time per day Aug, Active Black Cohosh 200 MG Active Polyethylene Glycol 3350 17 gm/dose Orally Once a day 1 scoop 24h Feb, Active RESULTS No Results PROCEDURES Procedure Date Ordered Related Diagnosis Body Site Office Visit, Est Pt., Level 3 Mar 12, 2016 IMMUNIZATIONS No Known Immunizations
--- OUTSIDE RECORDS SUMMARY | 2017-06-13 07:58 | XMS REPORT ---
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 Name Role Phone CHARLES SILVA Unavailable PROBLEMS Type Condition ICD9-CM Code [id number] Code Onset Dates Condition Status SNOMED Code Problem Mood and affect disturbance F39 Active 71157853 Problem Acute cystitis with hematuria N30.01 Active 98998318 Problem Panlobular emphysema J43.1 Active 6792426 Problem Creatinine elevation R79.89 Active 856756193 Problem Osteoporosis M81.0 Active 80467244 Problem Vitamin D deficiency E55.9 Active 67307172 Problem Hypertriglyceridemia E78.1 Active 758197064 Problem High risk medication use Z79.899 Active 134120507 ALLERGIES No Information SOCIAL HISTORY Never Assessed PLAN OF CARE VITAL SIGNS MEDICATIONS Medication Instructions Dosage Frequency Start Date End Date Duration Status Lopid 600 MG Orally Twice a day 1 tablet 12h 17 Apr, 2016 Active RESULTS No Results PROCEDURES No Known [...]
--- OUTSIDE RECORDS SUMMARY | 2017-06-13 07:59 | XMS REPORT | Continuity of Care Document ---
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 eosinophils/100 leukocytes 2 % 0-10 Automated blood basophils/100 leukocytes 0 % 0-10 Blood neutrophils automated count (number/volume) 3.0 10*3 1.8-7.8 Blood lymphocytes automated count (number/volume) 2.9 10*3 1.0-4.0 Blood monocytes automated count (number/volume) 0.4 10*3 0.0-1.0 Automated eosinophil count 0.2 10*3/uL 0.0-0.3 Automated blood basophil count (count/volume) 0.0 10*3/uL 0.0-0.1 Comprehensive metabolic panel - 08/13/16 05:03 Serum or plasma sodium measurement (moles/volume) 142 mmol/L 135-145 Serum or plasma potassium measurement (moles/volume) 3.8 mmol/L 3.6-5.0 Serum or plasma chloride measurement (moles/volume) 108 mmol/L 98-107 Carbon dioxide 25 mmol/L 21-32 Serum or plasma anion gap determination (moles/volume) 9 mmol/L 5-14 Serum or plasma urea nitrogen measurement (mass/volume) 7 mg/dL 7-18 Serum or plasma creatinine measurement (mass/volume) 0.89 mg/dL 0.60-1.30 Serum or plasma urea nitrogen/creatinine mass ratio 8 NRG Serum or plasma creatinine measurement with calculation of estimated glomerular filtration rate > NRG Serum or plasma glucose measurement (mass/volume) 94 mg/dL 70-105 Serum or plasma calcium measurement (mass/volume) 8.8 mg/dL 8.5-10.1 Serum or plasma total bilirubin measurement (mass/volume) 0.4 mg/dL 0.1-1.0 Serum or plasma alkaline phosphatase measurement (enzymatic activity/volume) 80 U/L 40-136 Serum or plasma aspartate aminotransferase measurement (enzymatic activity/ volume) 36 U/L 5-34 Serum or plasma alanine aminotransferase measurement (enzymatic activity/volume ) 25 U/L 0-55 Serum or plasma protein measurement (mass/volume) 6.3 g/dL 6.4-8.2 Serum or plasma albumin measurement (mass/volume) 3.8 g/dL 3.2-4.5 Encounters ACCT No. Visit Date/Time Discharge Status Pt. Type Provider Facility Loc./Unit Complaint [id number] 09/13/2012 14:01:00 Document Registration [id number] 03/31/2017 09:55:00 03/31/2017 23:59:59 CLS Preadmit JUNG LERNER DO [facility] REHAB LBP; CERVICAL PAIN [id number] 03/03/2017 11:00:00 03/03/2017 23:59:59 CLS Preadmit BRIANA TORRES [facility] RAD SCREENING [id number] 10/21/2016 12:33:00 10/21/2016 23:59:59 CLS Outpatient FABIENNE RAMOS MD [facility] RAD SPINAL CORD COMPRESSION STENOSIS DISK BULGE [id number] 08/25/2016 10:20:00 08/25/2016 13:35:00 DIS Outpatient ISAIAH JARAMILLO MD [facility] ENDO HX POLYPS;ABD PAIN [id number] 08/24/2016 05:52:00 08/24/2016 23:59:59 CLS Outpatient ISAIAH JARAMILLO MD [facility] PREOP HX POLYPS;ABD PAIN [id number] 08/12/2016 11:24:00 08/13/2016 11:10:00 DIS Inpatient BETHEL SANABRIA DO [facility] 4TH COLITIS-CECUM AND APPENDIX [id number] 05/22/2016 12:57:00 05/22/2016 15:26:00 DIS Emergency JEFRY FARMER, ANA Curran [facility] ER UNRESPONSIVE [id number] 02/23/2016 10:02:00 02/23/2016 11:26:00 DIS Emergency AYANA BOATENG APRN [facility] ER BACK/NECK PAIN [id number] 02/05/2016 09:52:00 02/05/2016 23:59:59 CLS Outpatient WAQAR ARMENDARIZ [facility] RAD OSTEOPOROSIS,FATIGUE [id number] 12/31/2015 07:27:00 12/31/2015 11:35:00 DIS Emergency AC FARMER, REAGAN Yang [facility] ER MULTIPLE FALLS [id number] 04/12/2015 21:33:00 04/13/2015 02:20:00 DIS Emergency RUSSELL CALZADA MD [facility] ER [id number] 01/02/2014 11:20:00 01/02/2014 14:07:00 DIS Emergency SHADE WHEATLEY [facility] ER [id number] 07/02/2014 11:37:00 Document Registration [id number] 02/22/2011 14:57:00 Document Registration
[2017-06-13 08:32] LABS: BILIRUBIN,URINE NEGATIVE (NEGATIVE); CLARITY,URINE VERY CLOUDY; COLOR,URINE AMBER; GLUCOSE, URINE (UA) NEGATIVE (NEGATIVE); KETONES,URINE NEGATIVE (NEGATIVE); LEUKOCYTE ESTERASE ,URINE 3+ (NEGATIVE); NITRITE,URINE POSITIVE (NEGATIVE); PH,URINE 5 (5-9); PROTEIN,URINE 3+ (NEGATIVE); UROBILINOGEN,URINE NORMAL (NORMAL)
[2017-06-13 08:53] LABS: BASOPHILS % (AUTO) 0 % (0-10); EOSINOPHILS # (AUTO) 0.1 10^3/uL (0.0-0.3); EOSINOPHILS % (AUTO) 1 % (0-10); HEMATOCRIT 38 % (35-52); LYMPHOCYTES # (AUTO) 2.8 X 10^3 (1.0-4.0); LYMPHOCYTES % (AUTO) 26 % (12-44); MEAN CORPUSCULAR HEMOGLOBIN 32 PG (25-34); MEAN CORPUSCULAR HGB CONC 37 G/DL (32-36); MEAN CORPUSCULAR VOLUME 86 FL (80-99); MEAN PLATELET VOLUME 8.8 FL (7.4-10.4); MONOCYTES # (AUTO) 0.5 X 10^3 (0.0-1.0); MONOCYTES % (AUTO) 4 % (0-12); NEUTROPHILS # (AUTO) 7.3 X 10^3 (1.8-7.8); NEUTROPHILS % (AUTO) 68 % (42-75); PLATELET COUNT 225 10^3/uL (130-400); RED BLOOD COUNT 4.42 10^6/uL (4.35-5.85); RED CELL DISTRIBUTION WIDTH 12.5 % (10.0-14.5); WHITE BLOOD COUNT 10.8 10^3/uL (4.3-11.0)
[2017-06-13] MEDS ORDERED: fentaNYL INJECTION 100 MCG/2 ML AMP IVP ONE ×2 (09:00→09:45)
[2017-06-13 09:07] LABS: BACTERIA,URINE MODERATE /HPF; RBC,URINE TNTC /HPF; WBC,URINE TNTC /HPF; YEAST,URINE FEW /HPF
[2017-06-13 09:19] LABS: BILIRUBIN,TOTAL 0.4 MG/DL (0.1-1.0); CALCIUM 9.2 MG/DL (8.5-10.1); CREATININE SERUM 1.05 MG/DL (0.60-1.30); MAGNESIUM 1.6 MG/DL (1.8-2.4); POTASSIUM 3.6 MMOL/L (3.6-5.0); TOTAL PROTEIN 6.6 GM/DL (6.4-8.2)
[2017-06-13 09:39] LABS: TSH (THYROID ANALYZER) 1.64 UIU/ML (0.35-4.94)
[2017-06-13] MEDS ORDERED: CIPROFLOXACIN IV 400MG/200ML 200 ML IV ONE (09:45)
[2017-06-13] MEDS ORDERED: NS 100 ML (IVPB) BAG IV ONE (10:00)
[2017-06-13] MEDS ORDERED: IOHEXOL 350 MG/ML 100 ML (OMNIPAQUE 350) VIAL IV ONE (10:00)
--- NOTE | 2017-06-13 11:18 | Diagnostic Imaging Report ---
PROCEDURE: CT abdomen and pelvis with contrast. TECHNIQUE: Multiple contiguous axial images were obtained through the abdomen and pelvis after administration of intravenous contrast. INDICATION: Bilateral flank pain, low back pain, hematuria. COMPARISON: Exam compared to 08/12/2016 FINDINGS: The lung bases were clear. The gallbladder surgically absent with no pathological dilatation of the bile ducts. The liver parenchyma unremarkable. The spleen is negative. The adrenals and pancreas negative. There is no hydronephrosis and there were no opaque urinary tract stones at this nonenhanced exam. The urinary bladder wall is thickened raising the question of cystitis. Renal parenchymal cortical density and enhancement appeared unremarkable. There were no findings suggestive of CT evidence for pyelonephritis. No evidence for renal abscess. There is a nonaneurysmal aortoiliac atherosclerosis without occlusion or findings of end organ ischemia. There is a large amount of stool in the cecum, ascending and proximal transverse colon. The left colon and sigmoid are decompressed, limiting the masterson evaluation. No evidence for henry bowel obstruction. The small bowel nondilated. No pneumatosis or free gas. IMPRESSION: 1. Unobstructed kidneys appeared nonfocal. There is thickening of the masterson of the urinary bladder, cystitis could not be excluded, correlate clinically. Proximal colonic constipation. The distal large bowel is decompressed without an abrupt transition or evidence for henry obstruction. The collapsed nature of the left colon and sigmoid limits its evaluation and showed no obvious acute or focal abnormality. 2. Postoperative changes. The remaining structures are unremarkable. We were unable to identify the appendix but there are no findings of appendicitis. Dictated by: Dictated on workstation # [id number]
[2017-06-13 11:30] VITALS: BP 149/72
[2017-06-13] MEDS ORDERED: methylPREDNISolone 125 MG (Solu-MEDROL) VIAL IVP ONE (11:30)
[2017-06-13] MEDS ORDERED: diphenhydrAMINE 50 MG/ML INJ (BENADRYL) IVP ONE (11:30)
--- NOTE | 2017-06-13 12:00 | ED Abdominal Pain ---
General Chief Complaint: -Female Stated Complaint: BLOOD IN URINE Nursing Triage Note: ARRIVED VIA AMB WITH COMPLAINTS OF PEEING BLOOD STARTING THIS AM AND CHRONIC ABD PAIN. PT UPSET ET CRYING. Sepsis Screen: No Definite Risk Source of Information: Old Records History of Present Illness Date Seen by Provider: Jun 13, 2017 Time Seen by Provider: 07:59 Initial Comments This 56-year-old woman presents to the emergency room with abdominal pain. She states abdominal pain has been present for several months. She has undergone workup in the outpatient setting which included colonoscopy. She also reports having hematuria this morning and a foul urine odor. She reports recently going off of Forteo because of its debilitating side effects. She has been experiencing nausea and occasional vomiting. She has recurrent episodes of diarrhea alternating with constipation. She states she currently has no primary care provider because "I am a difficult patient". She is tender across the lower abdomen. Review of her chart notes colonoscopy demonstrating colitis and mild diverticulosis. She also has hemorrhoids and polyps. Allergies and Home Medications Allergies Coded Allergies: ciprofloxacin (Verified Allergy, Severe, RASH, ITCHING, 06/13/17) Penicillins (Verified Allergy, Unknown, 08/12/16) prochlorperazine (Verified Allergy, Unknown, 08/12/16) promethazine (Verified Allergy, Unknown, 08/12/16) Uncoded Allergies: IV DYE (Allergy, Severe, RASH, 06/13/17) Home Medications Alprazolam 1 Mg Tablet, 1 MG PO 5XD PRN for ANXIETY, (Reported) Cephalexin 500 Mg Capsule, 500 MG PO QID Prescribed by: REAGAN CHILDS on 06/13/17 1224 Ergocalciferol (Vitamin D2) 50,000 Unit Capsule, 5,000 UNITS PO DAILY, (Reported ) Fentanyl 1 Each Patch.td72, 25 MCG TD Q72H Prescribed by: DEMETRIS CRAWLEY on 08/13/16 1055 Hydrocodone/Acetaminophen 1 Each Tablet, 1 EACH PO Q6H PRN for PAIN-SEVERE Prescribed by: REAGAN CHILDS on 06/13/17 1227 Meloxicam 15 Mg Tablet, 15 MG PO DAILY, (Reported) Oxycodone HCl/Acetaminophen 1 Each Tablet, 1 EACH PO Q6H Prescribed by: DEMETRIS CRAWLEY on 08/13/16 1055 Paroxetine HCl 40 Mg Tablet, 40 MG PO DAILY, (Reported) Polyethylene Glycol 3350 255 Gm Powder, 17 GM PO BID PRN for CONSTIPATION-1ST LINE, (Reported) Teriparatide 600 Mcg/2.4 Ml Syr, 20 MCG SQ HS, (Reported) Tizanidine HCl 4 Mg Tablet, 4 MG PO Q8H PRN for MUSCLE SPASMS, (Reported) Trazodone HCl 50 Mg Tablet, 50-100 MG PO HS PRN for SLEEP, (Reported) TAKES 1-2 OF A (50 MG) TABLET Patient Home Medication List Home Medication List Reviewed: Yes Review of Systems Constitutional: no symptoms reported EENTM: No Symptoms Reported Respiratory: No Symptoms Reported Cardiovascular: No Symptoms Reported Gastrointestinal: See HPI Genitourinary: See HPI Musculoskeletal: no symptoms reported Skin: no symptoms reported Psychiatric/Neurological: No Symptoms Reported Endocrine: No Symptoms Reported Past Bwxxypm-Zcqont-Hihhfb Hx Patient Social History Alcohol Use: Denies Use Alcohol Beverage of Choice: Beer Recreational Drug Use: No Drug of Choice: MARIJUANA Smoking Status: Former Smoker Type Used: Cigarettes Former Smoker, Quit: Dec 26, 2014 Recent Foreign Travel: No Contact w/Someone Who Travel: No Recent Infectious Disease Expo: No Recent Hopitalizations: No Immunizations Up To Date Date of Pneumonia Vaccine: Jan 26, 2015 Seasonal Allergies Seasonal Allergies: No Surgeries History of Surgeries: Yes (CERVICAL FUSION, adhesiolysis) Surgeries: Abdominal, Cardiac (Cardiac catheter), Section, Gallbladder , Hysterectomy, Orthopedic, Tonsillectomy Respiratory History of Respiratory Disorde: Yes Respiratory Disorders: Asthma Currently Using CPAP: No Currently Using BIPAP: No Cardiovascular History of Cardiac Disorders: Yes Cardiac Disorders: Hypertension Neurological History of Neurological Disord: No Reproductive System : No Sexually Transmitted Disease: No HIV/AIDS: No Female Reproductive Disorders: 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 Genitourinary History of Genitourinary Disor: No Gastrointestinal History of Gastrointestinal Di: Yes Gastrointestinal Disorders: Colitis, Diverticulosis, Hemorrhoids, Hiatal Hernia , Gall Bladder Disease, Irritable Bowel Musculoskeletal History of Musculoskeletal Dis: Yes (Scoliosis) Musculoskeletal Disorders: Osteoporosis, Arthritis, Fibromyalgia, Chronic Back Pain Endocrine History of Endocrine Disorders: No HEENT History of HEENT Disorders: No Cancer History of Cancer: Yes Cancer: Skin, Cervical Did You Recieve Any Treatments: Yes Type of Tx Receive: Surgical Intervention Psychosocial History of Psychiatric Problem: Yes Behavioral Health Disorders: Anxiety, PTSD, Bipolar Integumentary History of Skin or Integumenta: No Blood Transfusions History of Blood Disorders: No Family Medical History Significant Family History: No Pertinent Family Hx Family Medial History: Patient reports no known family medical history. Physical Exam Vital Signs VS - Last 72 Hours, by Label 06/13/17 06/13/17 06/13/17 08:00 11:30 12:40 Temp 97.8 Pulse 84 77 73 Resp B/P (MAP) 171/93 (119) 149/72 (97) 149/73 Pulse Ox 98 99 98 O2 Delivery Room Air Capillary Refill : Less Than 3 Seconds General Appearance: WD/WN, mild distress (Irritable) HEENT: PERRL/EOMI, normal ENT inspection, pharynx normal Neck: normal inspection Respiratory: lungs clear, normal breath sounds, no respiratory distress, no accessory muscle use Cardiovascular: regular rate, rhythm, no edema, no murmur Gastrointestinal: normal bowel sounds, soft, No guarding, No rebound, tenderness (Across the lower abdomen) Extremities: normal inspection, no pedal edema Back: CVA tenderness (R), CVA tenderness (L) Neurologic/Psychiatric: retort load expediter II-XII nml as tested, no motor/sensory deficits, alert, oriented x 3, other (Irritable) Skin: normal color, warm/dry Progress/Results/Core Measures Results/Orders Lab Results Laboratory Tests Test 06/13/17 08:06 06/13/17 08:43 Range/Units Urine Color DIYA H Urine Clarity VERY CLOUDY H Urine pH 5 5-9 Urine Specific [place] 1.015 L 1.016-1.022 Urine Protein 3+ H NEGATIVE Urine Glucose (UA) NEGATIVE NEGATIVE Urine Ketones NEGATIVE NEGATIVE Urine Nitrite POSITIVE H NEGATIVE Urine Bilirubin NEGATIVE NEGATIVE Urine Urobilinogen NORMAL NORMAL MG/DL Urine Leukocyte Esterase 3+ H NEGATIVE Urine RBC (Auto) 5+ H NEGATIVE Urine RBC TNTC H /HPF Urine WBC TNTC H /HPF Urine Renal Epithelial Cells 10-25 H /HPF Urine Crystals NONE /LPF Urine Bacteria MODERATE H /HPF Urine Casts NONE /LPF Urine Mucus NEGATIVE /LPF Urine Yeast FEW H /HPF Urine Culture Indicated YES White Blood Count 10.8 4.3-11.0 10^3/uL Red Blood Count 4.42 4.35-5.85 10^6/uL Hemoglobin 14.0 11.5-16.0 G/DL Hematocrit 38 35-52 % Mean Corpuscular Volume 86 80-99 FL Mean Corpuscular Hemoglobin 32 25-34 PG Mean Corpuscular Hemoglobin Concent 37 H 32-36 G/DL Red Cell Distribution Width 12.5 10.0-14.5 % Platelet Count 225 130-400 10^3/uL Mean Platelet Volume 8.8 7.4-10.4 FL Neutrophils (%) (Auto) 68 42-75 % Lymphocytes (%) (Auto) 26 12-44 % Monocytes (%) (Auto) 4 0-12 % Eosinophils (%) (Auto) 1 0-10 % Basophils (%) (Auto) 0 0-10 % Neutrophils # (Auto) 7.3 1.8-7.8 X 10^3 Lymphocytes # (Auto) 2.8 1.0-4.0 X 10^3 Monocytes # (Auto) 0.5 0.0-1.0 X 10^3 Eosinophils # (Auto) 0.1 0.0-0.3 10^3/uL Basophils # (Auto) 0.0 0.0-0.1 10^3/uL Sodium Level 141 135-145 MMOL/L Potassium Level 3.6 3.6-5.0 MMOL/L Chloride Level 106 98-107 MMOL/L Carbon Dioxide Level 26 21-32 MMOL/L Anion Gap 9 5-14 MMOL/L Blood Urea Nitrogen 8 7-18 MG/DL Creatinine 1.05 0.60-1.30 MG/DL Estimat Glomerular Filtration Rate 54 BUN/Creatinine Ratio 8 Glucose Level 91 70-105 MG/DL Calcium Level 9.2 8.5-10.1 MG/DL Magnesium Level 1.6 L 1.8-2.4 MG/DL Total Bilirubin 0.4 0.1-1.0 MG/DL Aspartate Amino Transf (AST/SGOT) 21 5-34 U/L Alanine Aminotransferase (ALT/SGPT) 21 0-55 U/L Alkaline Phosphatase 85 40-136 U/L C-Reactive Protein High Sensitivity 0.49 0.00-0.50 MG/DL Total Protein 6.6 6.4-8.2 GM/DL Albumin 4.0 3.2-4.5 GM/DL Lipase 35 8-78 U/L TSH [place] Testing 1.64 0.35-4.94 UIU/ML Micro Results Microbiology 06/13/17 Urine Culture - Preliminary, Resulted Gram Negative Rafi My Orders Orders - REAGAN SHEN MD Ua Culture If Indicated (06/13/17 07:59) Cbc With Automated Diff (06/13/17 08:21) Comprehensive Metabolic Panel (06/13/17 08:21) Lipase (06/13/17 08:21) Magnesium (06/13/17 08:21) Thyroid Analyzer (06/13/17 08:21) Saline Lock/Iv-Start (06/13/17 08:21) Hs C Reactive Protein (06/13/17 08:26) Fentanyl Injection (Sublimaze Injection (06/13/17 09:00) Urine Culture (06/13/17 08:06) Ct Abdomen/Pelvis W (06/13/17 09:42) Fentanyl Injection (Sublimaze Injection (06/13/17 09:45) Ciprofloxacin Iv 400mg/200ml (Cipro Iv S (06/13/17 09:45) Iohexol Injection (Omnipaque 350 Mg/Ml 1 (06/13/17 10:00) Ns (Ivpb) (Sodium Chloride 0.9% Ivpb Bag (06/13/17 10:00) Diphenhydramine Injection (Benadryl Inje (06/13/17 11:30) Methylprednisolone Sod Succ (Solu-Medrol (06/13/17 11:30) Medications Given in ED Vital Signs/I&O Vital Sign - Last 12Hours 06/13/17 06/13/17 06/13/17 08:00 11:30 12:40 Temp 97.8 Pulse 84 77 73 Resp 18 18 B/P (MAP) 171/93 (119) 149/72 (97) 149/73 Pulse Ox 98 99 98 O2 Delivery Room Air Blood Pressure Mean: 119 Progress Note : Progress Note Patient was seen and examined. Lab workup was pursued. Patient was found to have a significant urinary tract infection. CT scan was pursued because of the extent of her abdominal pain. Patient developed a rash in her left arm proximal to the IV site after administration of IV contrast and Cipro. Both of these were added to her allergy list. She was given Benadryl and Solu-Medrol with resolution of the rash. CT scan revealed cystitis and possible constipation. Patient had received 2 doses of fentanyl for pain management. We had a discussion about further treatment of narcotics being contraindicated in the presence of constipation. However, patient was still pushing for treatment with narcotics. See discharge instructions. Diagnostic Imaging Diagonstic Imaging: CT Plain Films/CT/US/NM/MRI: abdomen, pelvis Comments CT abdomen and pelvis viewed by me and report reviewed. See report below: NAME: ZIYAD TOMLINSON [facility] REC#: [id number] PT STATUS: REG ER : 1960 PHYSICIAN: REAGAN SHEN MD ADMIT DATE: 06/13/17/ER Draft Date of Exam:06/13/17 CT ABDOMEN/PELVIS W PROCEDURE: CT abdomen and pelvis with contrast. TECHNIQUE: Multiple contiguous axial images were obtained through the abdomen and pelvis after administration of intravenous contrast. INDICATION: Bilateral flank pain, low back pain, hematuria. COMPARISON: Exam compared to 08/12/2016 FINDINGS: The lung bases were clear. The gallbladder surgically absent with no pathological dilatation of the bile ducts. The liver parenchyma unremarkable. The spleen is negative. The adrenals and pancreas negative. There is no hydronephrosis and there were no opaque urinary tract stones at this nonenhanced exam. The urinary bladder wall is thickened raising the question of cystitis. Renal parenchymal cortical density and enhancement appeared unremarkable. There were no findings suggestive of CT evidence for pyelonephritis. No evidence for renal abscess. There is a nonaneurysmal aortoiliac atherosclerosis without occlusion or findings of end organ ischemia. There is a large amount of stool in the cecum, ascending and proximal transverse colon. The left colon and sigmoid are decompressed, limiting the masterson evaluation. No evidence for henry bowel obstruction. The small bowel nondilated. No pneumatosis or free gas. IMPRESSION: 1. Unobstructed kidneys appeared nonfocal. There is thickening of the masterson of the urinary bladder, cystitis could not be excluded, correlate clinically. Proximal colonic constipation. The distal large bowel is decompressed without an abrupt transition or evidence for henry obstruction. The collapsed nature of the left colon and sigmoid limits its evaluation and showed no obvious acute or focal abnormality. 2. Postoperative changes. The remaining structures are unremarkable. We were unable to identify the appendix but there are no findings of appendicitis. Dictated on workstation # [id number] Dict: 06/13/17 1107 Trans: 06/13/17 1118 CV [id number] Interpreted by: JEANNE SMITH Departure Impression Impression: Primary Impression: Urinary tract infection Qualified Codes: N39.0 - Urinary tract infection, site not specified Additional Impressions: Generalized abdominal pain Constipation Qualified Codes: K59.00 - Constipation, unspecified Allergic reaction to drug Qualified Codes: T78.40XA - Allergy, unspecified, initial encounter Disposition: HOME, SELF-CARE Condition: Improved Departure-Patient Inst. Referrals: JUNG LERNER DO (PCP/Family) Primary Care Physician Patient Instructions: Acute Abdomen (Belly Pain), Constipation in Adults, Urinary Tract Infection, Adult (DC) Add. Discharge Instructions: Drink plenty of clear liquids. Start with a clear liquid diet today and gradually advance your diet with small quantities of bland solid food as tolerated tomorrow. To treat your constipation increase your MiraLAX use to 2 or 3 times daily until a good bowel movement has been produced. Magnesium citrate should only be used as a last resort as it can cause cramping and worsening of abdominal pain. Eat plenty of fruits, vegetables, and whole grains. Avoid excessive meats, cheeses, processed foods, and fast foods as they may make constipation worse. To treat your pain, start with Tylenol (acetaminophen). Add ibuprofen or Aleve for pain not controlled by Tylenol. Finally, add hydrocodone sparingly for more severe uncontrolled pain. Please be aware that hydrocodone may worsen your constipation. Complete your antibiotic as prescribed. Follow-up on your urine culture results on Tuesday or with your primary care provider. Make an appointment with your primary care provider to be seen as soon as possible. Please call today to schedule the appointment. Return to care if symptoms worsen. All discharge instructions reviewed with patient and/or family. Voiced understanding. Scripts Hydrocodone/Acetaminophen (Hydrocodone-Acetamin 5-325 mg) 1 Each Tablet 1 EACH PO Q6H Y for PAIN-SEVERE, #8 TAB Prov: REAGAN SHEN MD 06/13/17 Cephalexin (Keflex) 500 Mg Capsule 500 MG PO QID, #28 CAP Prov: REAGAN SHEN MD 06/13/17 Copy Copies To 1: JUNG LERNER JOSHUA T MD Jun 13, 2017 12:00
[2017-06-13] MEDS ORDERED: CEPH-507 PO (12:24)
[2017-06-13] MEDS ORDERED: HYDR-3812 PO (12:27)
[2017-06-13 12:40] VITALS: BP 149/73
== END 2017-06-13 12:40 | disposition home or self-care (01) ==
LOC: EDUNIT# 07:51 → ER 07:53
DX: N39.0 Urinary tract infection, site not specified (principal); K59.00 Constipation, unspecified; T50.995A Adverse effect of other drugs, medicaments and biological substances, initial encounter; J45.909 Unspecified asthma, uncomplicated; F41.9 Anxiety disorder, unspecified; F43.10 Post-traumatic stress disorder, unspecified; F31.9 Bipolar disorder, unspecified; I10 Essential (primary) hypertension; M81.0 Age-related osteoporosis without current pathological fracture; F12.10 Cannabis abuse, uncomplicated; Z87.891 Personal history of nicotine dependence; Z85.828 Personal history of other malignant neoplasm of skin; Z98.1 Arthrodesis status; Z87.19 Personal history of other diseases of the digestive system; Z87.59 Personal history of other complications of pregnancy, childbirth and the puerperium; Z90.89 Acquired absence of other organs; Z90.710 Acquired absence of both cervix and uterus; Z88.1 Allergy status to other antibiotic agents; Z88.0 Allergy status to penicillin; Z88.8 Allergy status to other drugs, medicaments and biological substances; Z91.041 Radiographic dye allergy status
CPT/HCPCS: 36415; 74177; 80053; 81000; 83690; 83735; 84443; 85025; 86141; 87077; 87088; 87186; 96365; 96372; 96375; 96376

== ENCOUNTER 2021-05-15 20:39 | Emergency (ER) | payer BC, OTHER ==
[~2021-05-15] VITALS: Ht 170.2 cm; Wt 81.6 kg
[~2021-05-15 20:39] MED LIST changes: +CEPH-507 PO; -GEMF600T3; +GEMF600T88; +HYDR-4226 PO; -HYDR-757 PO; -OXYC-202 PO; -OXYC-471 PO; +OXYC1TAB11 PO; +OXYC1TAB12 PO; -POLY255P PO; +POLY255P16 PO; +TIZA-186 PO; -TIZA4TAB3 PO; -TRAZ-28 PO; +TRZ50T PO
[2021-05-15] MEDS ORDERED: ONDANSETRON 4 MG/2 ML (SDV) Z0FRAN IVP ONE (23:00)
[2021-05-15] MEDS ORDERED: LACTATED RINGERS 1,000 ML IV ONE (23:00)
[2021-05-15 23:04] LABS: BASOPHILS % (AUTO) 0 % (0-10); EOSINOPHILS % (AUTO) 0 % (0-10); HEMATOCRIT 47 % (35-52); HEMOGLOBIN 16.2 g/dL (11.5-16.0); LYMPHOCYTES # (AUTO) 1.6 10^3/uL (1.0-4.0); LYMPHOCYTES % (AUTO) 10 % (12-44); MEAN CORPUSCULAR HEMOGLOBIN 31 pg (25-34); MEAN CORPUSCULAR HGB CONC 35 g/dL (32-36); MEAN CORPUSCULAR VOLUME 88 fL (80-99); MEAN PLATELET VOLUME 9.1 fL (9.0-12.2); MONOCYTES # (AUTO) 0.5 10^3/uL (0.0-1.0); MONOCYTES % (AUTO) 3 % (0-12); NEUTROPHILS # (AUTO) 13.4 10^3/uL (1.8-7.8); NEUTROPHILS % (AUTO) 86 % (42-75); PLATELET COUNT 343 10^3/uL (130-400); WHITE BLOOD COUNT 15.7 10^3/uL (4.3-11.0)
[2021-05-15 23:10] LABS: LYMPHOCYTES % (MANUAL) 11 %; MONOCYTES % (MANUAL) 5 %; NEUTROPHILS % (MANUAL) 84 %; RBC MORPH NORMAL
[2021-05-15] MEDS ORDERED: LORazepam INJ 2 MG/ML (ATIVAN) VIAL IVP ONE (23:15)
[2021-05-15 23:17] LABS: ALBUMIN 4.4 GM/DL (3.2-4.5); POTASSIUM 3.1 MMOL/L (3.6-5.0)
[2021-05-15 23:19] LABS: CALCIUM 9.7 MG/DL (8.5-10.1)
[2021-05-15 23:20] LABS: TOTAL PROTEIN 7.8 GM/DL (6.4-8.2)
[2021-05-15 23:22] LABS: BILIRUBIN,TOTAL 1.1 MG/DL (0.1-1.0)
[2021-05-15 23:23] LABS: CREATININE SERUM 1.07 MG/DL (0.60-1.30)
[2021-05-15 23:27] LABS: MAGNESIUM 1.7 MG/DL (1.6-2.4)
[2021-05-16 00:15] LABS: BILIRUBIN,URINE NEGATIVE (NEGATIVE); CLARITY,URINE CLEAR; COLOR,URINE YELLOW; GLUCOSE, URINE (UA) NEGATIVE (NEGATIVE); KETONES,URINE NEGATIVE (NEGATIVE); LEUKOCYTE ESTERASE ,URINE NEGATIVE (NEGATIVE); NITRITE,URINE NEGATIVE (NEGATIVE); PROTEIN,URINE NEGATIVE (NEGATIVE)
[2021-05-16] MEDS ORDERED: NS 100 ML (IVPB) BAG IV ONE (00:15)
[2021-05-16] MEDS ORDERED: IOHEXOL 350 MG/ML 100 ML (OMNIPAQUE 350) VIAL IV ONE (00:15)
[2021-05-16] MEDS ORDERED: HOLD METFORMIN - RECEIVED CONTRAST 20 ML VIAL IV SCH (00:15)
[2021-05-16 00:38] LABS: BACTERIA,URINE NEGATIVE /HPF; SQUAMOUS EPITHELIAL CELL,UR 0-2 /HPF
[2021-05-16] MEDS ORDERED: PARoxetine 20 MG (PAXIL) TAB PO ONE (01:45)
[2021-05-16] MEDS ORDERED: KCL 10 MEQ TAB (MICRO K) PO ONE (01:45)
[2021-05-16] MEDS ORDERED: ALPRAZolam 0.5 MG (XANAX) TAB PO ONE (01:45)
[2021-05-16] MEDS ORDERED: traZODone 50 MG (DESYREL) TAB PO ONE (01:45)
[2021-05-16] MEDS ORDERED: PARO40TA PO (01:59)
[2021-05-16] MEDS ORDERED: TRZ50T PO (01:59)
[2021-05-16] MEDS ORDERED: ALPR0.5T7 PO (01:59)
--- NOTE | 2021-05-16 02:00 | ED General ---
General Chief Complaint: General Problems/Pain Stated Complaint: VOMITING/DIARRHEA Nursing Triage Note: PT TO FT 1 VIA WC W C/O N/V/D, CHILLS, LOWER ABD PAIN, AND INABILITY TO SLEEP FOR PAST 2 DAYS. PT REPORTS SHE RAN OUT OF XANAX AND TRAZODONE ON TUE, PRESCRIBING DR HAS BEEN SICK AND HARD TO CONTACT. PT A&OX4. Source of Information: Patient Exam Limitations: No Limitations History of Present Illness Date Seen by Provider: May 15, 2021 Time Seen by Provider: 22:24 Initial Comments This 60-year-old woman presents to the emergency room with complaints of nausea, vomiting, diarrhea, abdominal pain, and agitation. She has been experiencing insomnia over the past few days. She believes withdraw from trazodone, alprazolam, and Paxil is the cause of her symptoms. She has not been able to renew these medications because her doctor has been out of the office ill with COVID-19. She has experienced the symptoms with withdrawal in the past. She is afebrile at present. Primary care provider is Dr. Tracy Diana at [facility] in [place]. Patient data was initially entered under the wrong patient's chart (same name, different date of ). Orders and medications were entered under the wrong medical record number. Allergies and Home Medications Allergies Coded Allergies: ciprofloxacin (Verified Allergy, Severe, RASH, ITCHING, 06/13/17) Penicillins (Verified Allergy, Unknown, 08/12/16) prochlorperazine (Verified Allergy, Unknown, 08/12/16) promethazine (Verified Allergy, Unknown, 08/12/16) Uncoded Allergies: IV DYE (Allergy, Severe, RASH, 06/13/17) Patient Home Medication List Home Medication List Reviewed: Yes Alprazolam (Alprazolam) 1 Mg Tablet, 1 MG PO 5XD PRN for ANXIETY, (Reported) Entered as Reported by: AMY ALLAN on 05/22/16 1313 Alprazolam (Alprazolam) 0.5 Mg Tablet, 0.5 MG PO BID PRN for ANXIETY Prescribed by: REAGAN CHLIDS on 05/16/21 0200 Cephalexin (Keflex) 500 Mg Capsule, 500 MG PO QID Prescribed by: REAGAN CHILDS on 06/13/17 1224 Ergocalciferol (Vitamin D2) (Vitamin D2) 50,000 Unit Capsule, 5,000 UNITS PO DAILY, (Reported) Entered as Reported by: BELLA ROSARIO on 08/12/16 1253 Fentanyl (Duragesic Patch 25MCG) 1 Each Patch.td72, 25 MCG TD Q72H Prescribed by: DEMETRIS CRAWLEY on 08/13/16 1055 Hydrocodone Bit/Acetaminophen (Lortab 5 Mg Tablet) 1 Each Tablet, 1 EACH PO Q6H PRN for PAIN-SEVERE Prescribed by: REAGAN CHILDS on 06/13/17 1227 Meloxicam (Meloxicam) 15 Mg Tablet, 15 MG PO DAILY, (Reported) Entered as Reported by: MEDINA ORLANDO on 08/12/16 0906 Oxycodone HCl/Acetaminophen (Percocet 10-325 mg Tablet) 1 Each Tablet, 1 EACH PO Q6H Prescribed by: DEMETRIS CRAWLEY on 08/13/16 1055 Paroxetine HCl (Paroxetine HCl) 40 Mg Tablet, 40 MG PO DAILY, (Reported) Entered as Reported by: AMY ALLAN on 05/22/16 1313 Paroxetine HCl (Paxil) 40 Mg Tablet, 40 MG PO DAILY Prescribed by: REAGAN CHILDS on 05/16/21 0159 Polyethylene Glycol 3350 (Polyethylene Glycol 3350) 255 Gm Powder, 17 GM PO BID PRN for CONSTIPATION-1ST LINE, (Reported) Entered as Reported by: MEDINA ORLANDO on 08/12/16 09 Teriparatide (Forteo) 600 Mcg/2.4 Ml Syr, 20 MCG SQ HS, (Reported) Entered as Reported by: MEDINA ORLANDO on 08/12/16 09 Tizanidine HCl (Tizanidine HCl) 4 Mg Tablet, 4 MG PO Q8H PRN for MUSCLE SPASMS, (Reported) Entered as Reported by: MEDINA ORLANDO on 08/12/16 09 Trazodone HCl (Trazodone HCl) 50 Mg Tablet, 50-100 MG PO HS PRN for SLEEP, (Reported) Entered as Reported by: BELLA ROSARIO on 08/12/16 1235 Trazodone HCl (Trazodone HCl) 50 Mg Tablet, 50 MG PO HS Prescribed by: REAGAN CHILDS on 05/16/21 0159 Review of Systems Review of Systems Constitutional: see HPI EENTM: no symptoms reported Respiratory: no symptoms reported Cardiovascular: no symptoms reported Gastrointestinal: see HPI Genitourinary: no symptoms reported : No Musculoskeletal: no symptoms reported Skin: no symptoms reported Psychiatric/Neurological: See HPI Hematologic/Lymphatic: No Symptoms Reported Immunological/Allergic: no symptoms reported Past Aaqcysc-Wdeixi-Lmumnw Hx Patient Social History Tobacco Use?: Yes Tobacco type used: Cigarettes Smoking Status: Current Everyday Smoker Use of E-Cig and/or Vaping dev: No Substance use?: Yes Substance type: Marijuana Substance frequency: Daily Alcohol Use?: No Seasonal Allergies Seasonal Allergies: No Past Medical History Surgeries: Yes (CERVICAL FUSION, adhesiolysis) Abdominal, Cardiac, Section, Gallbladder, Hysterectomy, Orthopedic, Tonsillectomy Respiratory: Yes Asthma Currently Using CPAP: No Currently Using BIPAP: No Cardiac: Yes Hypertension Neurological: No Female Reproductive Disorders: Denies 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 No Pertinent Family Hx Physical Exam Vital Signs Vital Signs - First Documented 05/15/21 22:00 Temp 36.6 Pulse 120 Resp 20 B/P (MAP) 161/103 (122) Pulse Ox 97 O2 Delivery Room Air Capillary Refill : Less Than 3 Seconds Height, Weight, BMI Height: 5'6.00" Weight: 160lbs. 5.0oz. 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 Norm as Tested, Other (Anxious) Skin: Normal Color, Warm/Dry Progress/Results/Core Measures Suspected Sepsis SIRS Temperature: Pulse: 120 Respiratory Rate: 20 Laboratory Tests 05/15/21 22:58: White Blood Count 15.7H Blood Pressure 161 /103 Mean: 122 Laboratory Tests 05/15/21 22:58: Creatinine 1.07, Platelet Count 343, Total Bilirubin 1.1H Results/Orders Lab Results Laboratory Tests Test 05/15/21 22:58 05/16/21 00:09 Range/Units White Blood Count 15.7 H 4.3-11.0 10^3/uL Red Blood Count 5.29 H 3.80-5.11 10^6/uL Hemoglobin 16.2 H 11.5-16.0 g/dL Hematocrit 47 35-52 % Mean Corpuscular Volume 88 80-99 fL Mean Corpuscular Hemoglobin 31 25-34 pg Mean Corpuscular Hemoglobin Concent 35 32-36 g/dL Red Cell Distribution Width 13.8 10.0-14.5 % Platelet Count 343 130-400 10^3/uL Mean Platelet Volume 9.1 9.0-12.2 fL Immature Granulocyte % (Auto) 0 % Neutrophils (%) (Auto) 86 H 42-75 % Lymphocytes (%) (Auto) 10 L 12-44 % Monocytes (%) (Auto) 3 0-12 % Eosinophils (%) (Auto) 0 0-10 % Basophils (%) (Auto) 0 0-10 % Neutrophils # (Auto) 13.4 H 1.8-7.8 10^3/uL Lymphocytes # (Auto) 1.6 1.0-4.0 10^3/uL Monocytes # (Auto) 0.5 0.0-1.0 10^3/uL Eosinophils # (Auto) 0.0 0.0-0.3 10^3/uL Basophils # (Auto) 0.0 0.0-0.1 10^3/uL Immature Granulocyte # (Auto) 0.1 0.0-0.1 10^3/uL Neutrophils % (Manual) 84 % Lymphocytes % (Manual) 11 % Monocytes % (Manual) 5 % Blood Morphology Comment NORMAL Sodium Level 137 135-145 MMOL/L Potassium Level 3.1 L 3.6-5.0 MMOL/L Chloride Level 102 98-107 MMOL/L Carbon Dioxide Level 20 L 21-32 MMOL/L Anion Gap 15 H 5-14 MMOL/L Blood Urea Nitrogen 6 L 7-18 MG/DL Creatinine 1.07 0.60-1.30 MG/DL Estimat Glomerular Filtration Rate 59 BUN/Creatinine Ratio 6 Glucose Level 142 H 70-105 MG/DL Calcium Level 9.7 8.5-10.1 MG/DL Corrected Calcium 9.4 8.5-10.1 MG/DL Magnesium Level 1.7 1.6-2.4 MG/DL Total Bilirubin 1.1 H 0.1-1.0 MG/DL Aspartate Amino Transf (AST/SGOT) 24 5-34 U/L Alanine Aminotransferase (ALT/SGPT) 23 0-55 U/L Alkaline Phosphatase 82 40-136 U/L Total Protein 7.8 6.4-8.2 GM/DL Albumin 4.4 3.2-4.5 GM/DL Lipase 12 8-78 U/L Urine Color YELLOW Urine Clarity CLEAR Urine pH 6.0 5-9 Urine Specific [place] <=1.005 1.016-1.022 Urine Protein NEGATIVE NEGATIVE Urine Glucose (UA) NEGATIVE NEGATIVE Urine Ketones NEGATIVE NEGATIVE Urine Nitrite NEGATIVE NEGATIVE Urine Bilirubin NEGATIVE NEGATIVE Urine Urobilinogen 0.2 < = 1.0 MG/DL Urine Leukocyte Esterase NEGATIVE NEGATIVE Urine RBC (Auto) NEGATIVE NEGATIVE Urine RBC NONE /HPF Urine WBC NONE /HPF Urine Squamous Epithelial Cells 0-2 /HPF Urine Crystals NONE /LPF Urine Bacteria NEGATIVE /HPF Urine Casts NONE /LPF Urine Mucus NEGATIVE /LPF Urine Culture Indicated NO My Orders Orders - REAGAN SHEN MD Ed Iv/Invasive Line Start (05/15/21 22:46) Lactated Ringers (Lr 1000 Ml Iv Solution (05/15/21 23:00) Cbc With Automated Diff (05/15/21 22:46) Comprehensive Metabolic Panel (05/15/21 22:46) Lipase (05/15/21 22:46) Magnesium (05/15/21 22:46) Ua Culture If Indicated (05/15/21 22:46) Ondansetron Injection (Zofran Injectio (05/15/21 23:00) Lorazepam Injection (Ativan Injection) (05/15/21 23:15) Ct Abdomen/Pelvis W (05/15/21 23:08) Manual Differential (05/15/21 22:58) Iohexol Injection (Omnipaque 350 Mg/Ml 1 (05/16/21 00:15) Received Contrast (Hold Metformin- Contr (05/16/21 00:15) Ns (Ivpb) (Sodium Chloride 0.9% Ivpb Bag (05/16/21 00:15) Paroxetine Tablet (Paxil Tablet) (05/16/21 01:45) Alprazolam Tablet (Xanax Tablet) (05/16/21 01:45) Trazodone Tablet (Desyrel Tablet) (05/16/21 01:45) Potassium Chloride (Tablet) (Klor Con Ta (05/16/21 01:45) Medications Given in ED Current Medications Medications Dose Ordered Sig/Benjy Route Start Time Stop Time Status Last Admin Dose Admin Alprazolam 0.5 mg ONCE ONCE PO 05/16/21 01:45 05/16/21 01:46 DC 05/16/21 01:59 0.5 MG Iohexol 100 ml ONCE ONCE IV 05/16/21 00:15 05/16/21 00:21 DC 05/16/21 00:17 100 ML Lactated Ringer's 1,000 ml @ 0 mls/hr Q0M ONCE IV 05/15/21 23:00 05/15/21 23:01 DC 05/15/21 23:10 0 MLS/HR Lorazepam 0.5 mg ONCE ONCE IVP 05/15/21 23:15 05/15/21 23:16 DC 05/15/21 23:23 0.5 MG Ondansetron HCl 8 mg ONCE ONCE IVP 05/15/21 23:00 05/15/21 23:01 DC 05/15/21 23:10 8 MG Paroxetine HCl 40 mg ONCE ONCE PO 05/16/21 01:45 05/16/21 01:46 DC 05/16/21 01:59 40 MG Potassium Chloride 20 meq ONCE ONCE PO 05/16/21 01:45 05/16/21 01:46 DC 05/16/21 01:59 20 MEQ Sodium Chloride 100 ml ONCE ONCE IV 05/16/21 00:15 05/16/21 00:21 DC 05/16/21 00:17 80 ML Trazodone HCl 50 mg ONCE ONCE PO 05/16/21 01:45 05/16/21 01:46 DC 05/16/21 01:59 50 MG Vital Signs/I&O 05/15/21 05/16/21 22:00 02:12 Temp 36.6 Pulse 120 106 Resp 20 20 B/P (MAP) 161/103 (122) 172/90 Pulse Ox 97 93 O2 Delivery Room Air Room Air Capillary Refill : Less Than 3 Seconds Blood Pressure Mean: 122 Progress Note : Progress Note Patient was hydrated with a liter of LR. Zofran was used to treat her nausea. Because of her leukocytosis and abdominal pain, CT of the abdomen and pelvis was obtained. There were no acute findings. Patient was given a dose of her 3 missing medications. Potassium was replaced orally. See discharge instructions for further discussion. Diagnostic Imaging Diagonstic Imaging: CT Plain Films/CT/US/NM/MRI: abdomen, pelvis Comments CT abdomen pelvis viewed by me and report reviewed. See report below: NAME: ZIYAD TOMLINSON [facility] REC#: [id number] PT STATUS: DEP ER : 1960 PHYSICIAN: REAGAN SHEN MD ADMIT DATE: 05/15/21/ER Signed Date of Exam:05/15/21 CT ABDOMEN/PELVIS W PROCEDURE: CT abdomen and pelvis with contrast. TECHNIQUE: Multiple contiguous axial images were obtained through the abdomen and pelvis after administration of intravenous contrast. Auto Exposure Controls were utilized during the CT exam to meet ALARA standards for radiation dose reduction. All CT scans use one or more of the following dose optimizing techniques: automated exposure control, MA and/or KvP adjustment based on patient size and exam type or iterative reconstruction. INDICATION: Nausea, vomiting, diarrhea, abdominal pain COMPARISON: 06/13/2017 FINDINGS: The lung bases demonstrate atelectasis and scarring. The heart is normal in size. There is a small hiatal hernia. The liver demonstrates no focal lesions. Although this is noncontrast exam, there does appear to be fatty infiltration. Cholecystectomy clips are noted. The spleen appears to have a small well-circumscribed hypodensity measuring 1.4 cm in diameter, possibly a cyst or hemangioma. There are calcified granulomas in the spleen. The pancreas is normal. The adrenal glands are normal. The kidneys demonstrate no enhancing masses. There are simple appearing cysts in the left kidney. There is no hydronephrosis. The bowel loops are nondistended without obstruction. The appendix is not definitively seen but no secondary findings of appendicitis are identified. The cecum is flipped medially. No free fluid is seen. There is no free air. The colon is nondistended. There is diverticulosis of the sigmoid colon without diverticulitis seen. No significant lymphadenopathy is seen. The aorta demonstrates atherosclerosis but appears normal in caliber. No acute osseous abnormality is identified. There are degenerative changes in the spine. There are chronic compression deformities of L1 and L2. IMPRESSION: 1. No acute abnormality is seen in the abdomen or pelvis. 2. Colonic diverticulosis without diverticulitis. No significant changes from the preliminary report. Dictated by: Dictated on workstation # [id number] Dict: 05/16/21 0624 Trans: 05/16/21 0855 MONTSE [id number] Interpreted by: ELOINA GARCIA MD Electronically signed by: ELOINA GARCIA MD 05/16/21 0855 Departure Impression Primary Impression: Medication withdrawal Qualified Codes: F19.939 - Other psychoactive substance use, unspecified with withdrawal, unspecified Additional Impressions: Nausea & vomiting Qualified Codes: R11.2 - Nausea with vomiting, unspecified Lower abdominal pain Disposition: 01 HOME, SELF-CARE Condition: Improved Departure-Patient Inst. Referrals: UNKNOWN (PCP/Family) Primary Care Physician Patient Instructions: Severe Abdominal Pain Add. Discharge Instructions: Restart your medications as prescribed and follow-up with your primary care provider soon as possible. Drink plenty of clear liquids to stay well-hydrated. Use Zofran as prescribed for nausea vomiting. Return to care if you have worsening symptoms. All discharge instructions reviewed with patient and/or family. Voiced understanding. Scripts Paroxetine HCl (Paxil) 40 Mg Tablet 40 MG PO DAILY, #10 TAB Prov: REAGAN SHEN MD 05/16/21 Alprazolam (Alprazolam) 0.5 Mg Tablet 0.5 MG PO BID PRN for ANXIETY, #8 TAB Prov: REAGAN SHEN MD 05/16/21 Trazodone HCl (Trazodone HCl) 50 Mg Tablet 50 MG PO HS, #10 TAB Prov: REAGAN SHEN MD 05/16/21 REAGAN SHEN MD May 16, 2021 02:00
[2021-05-16 02:12] VITALS: BP 172/90
--- NOTE | 2021-05-16 06:42 | Diagnostic Imaging Report ---
PROCEDURE: CT abdomen and pelvis with contrast. TECHNIQUE: Multiple contiguous axial images were obtained through the abdomen and pelvis after administration of intravenous contrast. Auto Exposure Controls were utilized during the CT exam to meet ALARA standards for radiation dose reduction. All CT scans use one or more of the following dose optimizing techniques: automated exposure control, MA and/or KvP adjustment based on patient size and exam type or iterative reconstruction. INDICATION: Nausea, vomiting, diarrhea, abdominal pain COMPARISON: 06/13/2017 FINDINGS: The lung bases demonstrate atelectasis and scarring. The heart is normal in size. There is a small hiatal hernia. The liver demonstrates no focal lesions. Although this is noncontrast exam, there does appear to be fatty infiltration. Cholecystectomy clips are noted. The spleen appears to have a small well-circumscribed hypodensity measuring 1.4 cm in diameter, possibly a cyst or hemangioma. There are calcified granulomas in the spleen. The pancreas is normal. The adrenal glands are normal. The kidneys demonstrate no enhancing masses. There are simple appearing cysts in the left kidney. There is no hydronephrosis. The bowel loops are nondistended without obstruction. The appendix is not definitively seen but no secondary findings of appendicitis are identified. The cecum is flipped medially. No free fluid is seen. There is no free air. The colon is nondistended. There is diverticulosis of the sigmoid colon without diverticulitis seen. No significant lymphadenopathy is seen. The aorta demonstrates atherosclerosis but appears normal in caliber. No acute osseous abnormality is identified. There are degenerative changes in the spine. There are chronic compression deformities of L1 and L2. IMPRESSION: 1. No acute abnormality is seen in the abdomen or pelvis. 2. Colonic diverticulosis without diverticulitis. No significant changes from the preliminary report. Dictated by: Dictated on workstation # [id number]
== END 2021-05-16 02:12 | disposition home or self-care (01) ==
LOC: EDUNIT# 20:39 → ER 20:40
DX: F19.939 Other psychoactive substance use, unspecified with withdrawal, unspecified (principal); R11.2 Nausea with vomiting, unspecified; R10.30 Lower abdominal pain, unspecified; T42.4X6A Underdosing of benzodiazepines, initial encounter; Z91.138 Patient's unintentional underdosing of medication regimen for other reason; I10 Essential (primary) hypertension; F31.9 Bipolar disorder, unspecified; F41.9 Anxiety disorder, unspecified; F43.10 Post-traumatic stress disorder, unspecified; M41.9 Scoliosis, unspecified; M79.7 Fibromyalgia; J45.909 Unspecified asthma, uncomplicated; F17.210 Nicotine dependence, cigarettes, uncomplicated; Z79.899 Other long term (current) drug therapy
CPT/HCPCS: 36415; 74177; 80053; 81000; 83690; 83735; 85007; 85027